=== PATIENT | female | born 1935 | race Hispanic/Latino ===

== ENCOUNTER 2017-07-15 10:54 | Inpatient (IN) | payer MEDICARE, BC ==
[2017-07-15 11:34] VITALS: BMI 32.1
--- NOTE | 2017-07-15 11:47 | ED PDOC ---
Arrival/HPI - General Chief Complaint: Abnormal Labs Time Seen by Provider: 07/15/17 11:28 Historian: Patient - History of Present Illness Narrative History of Present Illness (Text): 07/15/17 11:44 Melissa Rodriguez is an 82 year old female, who was sent to the Emergency department by Dr. Rosales for reportedly abnormal blood tests. Patient informs she was told she has, "low kidney function" and "low Blood Count" by Dr. Rosales and be evaluated by the Emergency department. Patient states she "feels fine" but informs to light shortness of breath upon exertion for couple of weeks. Patient denies any dizziness, chest pain, palpitation, blood in stool or any other complaints. Time/Duration: 24 hours Symptom Onset: Gradual Symptom Course: Unchanged Activities at Onset: Light Context: Other (Referred by Dr. Rosales for evaluation ) Past Medical History - Provider Review Nursing Documentation Reviewed: Yes - Infectious Disease Hx of Infectious Diseases: None - Cardiac Hx GA: Yes (x 3 stents) Hx Hypertension: Yes - HEENT Hx Glaucoma: Yes - Renal Other/Comment: Kidney problems - sees dr strong - Endocrine/Metabolic Hx Diabetes Mellitus Type 2: Yes - Hematological/Oncological Hx Anemia: Yes - Psychiatric Hx Substance Use: No - Surgical History Hx Cardiac Catheterization: Yes (x 3 stents) Other/Comment: R foot surgery. micky hip replacement - Anesthesia Hx Anesthesia: Yes Hx Anesthesia Reactions: No Hx Malignant Hyperthermia: No Family/Social History - Physician Review Nursing Documentation Reviewed: Yes Family/Social History: Unknown Family HX Smoking Status: Former Smoker Hx Alcohol Use: No Hx Substance Use: No Allergies/Home Meds Allergies/Adverse Reactions: Allergies No Known Allergies Allergy (Verified 07/15/17 11:34) Home Medications: Home Meds Medication Instructions Recorded Confirmed Aclidinium Helen [Tudorza 1 puff IH DAILY 07/15/17 07/15/17 Pressair] Atorvastatin [Lipitor] 1 tab PO HS 07/15/17 07/15/17 Clopidogrel [Plavix] 1 tab PO DAILY 07/15/17 07/15/17 Ezetimibe [Zetia] 1 tab PO DAILY 07/15/17 07/15/17 Fluticasone/Salmeterol [Advair 1 puff IH DAILY 07/15/17 07/15/17 250-50 Diskus] Glimepiride [Amaryl] 1 tab PO DAILY 07/15/17 07/15/17 Lansoprazole [Prevacid] 1 cap PO DAILY 07/15/17 07/15/17 Latanoprost 0.005% Opht [Xalatan 1 drop BOTHEYES DAILY 07/15/17 07/15/17 Opht] [id number] Ethyl Esters 1 GM 1 cap PO DAILY 07/15/17 07/15/17 [Lovaza] Sertraline [Zoloft] 1 tab PO DAILY 07/15/17 07/15/17 Sevelamer [Renagel] 1 tab PO BID 07/15/17 07/15/17 Sodium Bicarbonate Tab [Sodium 1 tab PO DAILY 07/15/17 07/15/17 Bicarbonate Tab] amLODIPine [Norvasc] 1 tab PO DAILY 07/15/17 07/15/17 Review of Systems - Review of Systems Constitutional: Fatigue. absent: Fevers Eyes: absent: Vision Changes Respiratory: absent: SOB, Cough, Wheezing Cardiovascular: [place]. absent: Chest Pain, Palpitations, Edema Gastrointestinal: absent: Abdominal Pain, Nausea, Vomiting, Appetite Changes, Hematochezia, Hematemesis Genitourinary Female: absent: Dysuria, Hematuria Musculoskeletal: absent: Back Pain Skin: absent: Rash Neurological: absent: Headache, Dizziness, Focal Weakness Endocrine: absent: Polydipsia Hemo/Lymphatic: absent: Easy Bleeding Physical Exam Vital Signs Reviewed: Yes Vital Signs Temp Pulse Resp BP Pulse Ox 07/15/17 16:23 172/94 H 07/15/17 16:07 75 194/80 H 07/15/17 16:00 97.6 F 70 20 133/74 99 07/15/17 15:28 81 194/90 H 07/15/17 15:23 18 194/94 H 97 07/15/17 13:57 78 18 180/83 H 98 07/15/17 12:08 81 18 182/79 H 98 07/15/17 11:33 97.8 F 85 18 189/81 H 98 Temperature: Afebrile Appearance: Positive for: Well-Appearing, Non-Toxic, Comfortable Mental Status: Positive for: Alert and Oriented X 3 - Systems Exam Head: Present: Atraumatic, Normocephalic Pupils: Present: PERRL Extroacular Muscles: Present: EOMI Mouth: Present: Dry Pharnyx: No: ERYTHEMA Nose (Internal): Present: Normal Inspection, No Active Bleeding Neck: Present: Normal Range of Motion. No: Meningeal Signs Respiratory/Chest: Present: Clear to Auscultation. No: Respiratory Distress Cardiovascular: Present: Regular Rate and Rhythm, Murmurs Abdomen: No: Tenderness Rectal: No: Gross Blood Upper Extremity: No: Edema Lower Extremity: Present: Neurovascularly Intact. No: Edema Neurological: Present: Motor Func Grossly Intact, Normal Sensory Function Skin: Present: Pale Psychiatric: Present: Alert, Normal Insight, Normal Concentration Medical Decision Making ED Course and Treatment: 07/15/17 11:47 Patient is an 82 yo female sent by Dr. Rosales for abnormal labs. She states initially that she "feels fine" but states that she does have shortness of breath with exertion for several weeks. Denies chest pain or abdominal pain. Denies difficulty urinating. Denies bloody urine or stool. Labs reveal that she is anemic with elevated Cr. She denies any known prior history of anemia or renal disease. She states that she has been eating normally. No vomiting or diarrhea. No dysuria or frequency or hematuria. Chest X-ray reviewed by radiologist, shows no active disease. Currently she is CV stable, plan to admit for anemia, renal insufficiency. Case d/w Dr. James, covering for her physician. Treatment plan clearly reviewed with patient. Abnormal labs and treatment plan reviewed with patient she expresses agreement. I discussed case with Dr. Olmstead for renal consultation. Preliminary urine culture report reviewed on 07/16/17. Will contact admitting PMD and recommend antibiotic administration. - Lab Interpretations Lab Results: 07/15/17 12:00 07/15/17 12:00 Lab Results 07/15/17 12:55: Urine Color Yellow, Urine Appearance Sl cloudy, Urine pH 6.0, Ur Specific [place] 1.020, Urine Protein 100 H, Urine Glucose (UA) Negative, Urine Ketones Negative, Urine Blood Trace-intact H, Urine Nitrate Negative, Urine Bilirubin Negative, Urine Urobilinogen 0.2, Ur Leukocyte Esterase Small H , Urine RBC 2 - 5, Urine WBC 15 - 20, Ur Epithelial Cells 6 - 8, Urine Bacteria Mod 07/15/17 12:55: Blood Type AB POSITIVE, Antibody Screen Negative, Crossmatch See Detail, BBK History Checked No verified bt 07/15/17 12:03: POC Glucose (mg/dL) 109 07/15/17 12:00: Iron 33 L, TIBC 405, % Saturation 8 L 07/15/17 12:00: Phosphorus 5.2 H, Ferritin Pending 07/15/17 12:00: Sodium 137, Potassium 3.7, Chloride 104, Carbon Dioxide 22, Anion Gap 15, BUN 67 H, Creatinine 3.0 H, Est GFR ( Amer) 18, Est GFR ( Non-Af Amer) 15, Random Glucose 113 H, Calcium 10.4, Total Bilirubin 0.3, AST 31 , ALT 24, Alkaline Phosphatase 51, Lactate Dehydrogenase 498, Total Creatine Kinase 137, Troponin I 0.05, Total Protein 7.2, Albumin 4.1, Globulin 3.1, Albumin/Globulin Ratio 1.3 07/15/17 12:00: PT 10.6, INR 0.96, APTT 26.5 07/15/17 12:00: WBC 8.3, RBC 2.92 L, Hgb 7.9 L, Hct 25.3 L, MCV 86.6, MCH 27.1, MCHC 31.2, RDW 14.7 H, Plt Count 247, MPV 12.0 H, Gran % 69.9 H, Lymph % (Auto) 21.3 L, [place] % (Auto) 5.3, Eos % (Auto) 3.1, Baso % (Auto) 0.4, Gran # 5.81, Lymph # 1.8, [place] # 0.4, Eos # 0.3, Baso # 0.03 - RAD Interpretation Radiology Orders: 07/15/17 11:57 CHEST PORTABLE [RAD] [employer] Security Analyst: Radiologist - EKG Interpretation EKG Interpretation (Text): EKG at 12:01 normal sinus rhythm with sinus arrhythmia Interpreted by ED Physician: Yes Type: 12 lead EKG - Medication Orders Current Medication Orders: Albuterol/Ipratropium (Duoneb 3 Mg/0.5 Mg (3 Ml) Ud) 3 ml IH [id number] [facility] Last Admin: 07/16/17 07:48 Dose: 3 ml Amlodipine Besylate (Norvasc) 5 mg PO DAILY [facility] Last Admin: 07/16/17 09:54 Dose: 5 mg MAR Pulse and Blood Pressure Document 07/16/17 09:54 SOUSV (Rec: 07/16/17 09:54 [facility] [id number]) Pulse Pulse Rate (60-90) 62 Blood Pressure Blood Pressure (100/60-150/90) 130/60 Atorvastatin Calcium (Lipitor) 20 mg PO HS [facility] Last Admin: 07/15/17 21:49 Dose: 20 mg Clopidogrel Bisulfate (Plavix) 75 mg PO DAILY [facility] Last Admin: 07/16/17 09:55 Dose: 75 mg Glimepiride (Amaryl) 2 mg PO DAILY [facility] Last Admin: 07/16/17 09:55 Dose: 2 mg Hydralazine HCl (Apresoline) 20 mg PO TID [facility] Last Admin: 07/16/17 09:55 Dose: 20 mg MAR Pulse and Blood Pressure Document 07/16/17 09:55 SOUSV (Rec: 07/16/17 09:55 SOUSV [id number]) Pulse Pulse Rate (60-90) 62 Blood Pressure Blood Pressure (100/60-150/90) 130/60 Insulin Human Regular (Humulin R Med) 0 units SC [facility] PRN Reason: Protocol Last Admin: 07/16/17 08:21 Dose: Not Given Non-Admin Reason: Blood Sugar Parameter [facility] Blood Glucose Document 07/16/17 08:21 SOUSV (Rec: 07/16/17 08:21 [id number]) Blood Glucose Finger Stick Blood Glucose (70-120) 57 Latanoprost (Xalatan Opht) 0 ml OU DAILY [facility] Last Admin: 07/16/17 09:53 Dose: 2.5 ml Sertraline HCl (Zoloft) 100 mg PO DAILY [facility] Last Admin: 07/16/17 09:55 Dose: 100 mg Sevelamer HCl (Renagel) 800 mg PO BID [facility] Last Admin: 07/16/17 09:54 Dose: 800 mg Sodium Bicarbonate (Sodium Bicarbonate Tab) 650 mg PO BID [facility] Last Admin: 07/16/17 09:55 Dose: 650 mg Discontinued Medications Acetaminophen (Tylenol 325mg Tab) 650 mg PO ONCE ONE Stop: 07/16/17 08:47 Last Admin: 07/16/17 09:54 Dose: 650 mg MAR Pain/Vitals Document 07/16/17 09:54 SOUSV (Rec: 07/16/17 09:54 SOUS [id number]) Pain Reassessment Is This A Pain ReAssessment? No Presence of Pain Presence of Pain No Vitals Temperature (97.6 F-99.6 F) 97.3 F Temperature Source Oral Clonidine HCl (Catapres) 0.1 mg PO ONCE STA Stop: 07/15/17 15:22 Last Admin: 07/15/17 15:28 Dose: 0.1 mg MAR Pulse and Blood Pressure Document 07/15/17 15:28 SS (Rec: 07/15/17 15:29 SS [id number]) Pulse Pulse Rate (60-90) 81 Blood Pressure Blood Pressure (100/60-150/90) 194/90 Clonidine HCl (Catapres) 0.2 mg PO ONCE STA Stop: 07/15/17 16:04 Last Admin: 07/15/17 16:07 Dose: 0.2 mg MAR Pulse and Blood Pressure Document 07/15/17 16:07 GMD (Rec: 07/15/17 16:07 GMD [id number]) Pulse Pulse Rate (60-90) 75 Blood Pressure Blood Pressure (100/60-150/90) 194/80 - Scribe Statement The provider has reviewed the documentation as recorded by the Scribe Mal Cha. All medical record entries made by the Scribe were at my direction and personally dictated by me. I have reviewed the chart and agree that the record accurately reflects my personal performance of the history, physical exam, medical decision making, and the department course for this patient. I have also personally directed, reviewed, and agree with the discharge instructions and disposition. Disposition/Present on Arrival - Present on Arrival Any Indicators Present on Arrival: No History of DVT/PE: No History of Uncontrolled Diabetes: No Urinary Catheter: No History of Decub. Ulcer: No History Surgical Site Infection Following: None - Disposition Have Diagnosis and Disposition been Completed?: Yes Diagnosis: Anemia, Renal insufficiency Disposition: HOSPITALIZED Disposition Time: 12:39 Patient Plan: Admission Patient Problems: Current Active Problems Problem Status Onset Anemia Acute Renal insufficiency Acute Condition: FAIR
[2017-07-15 12:22] LABS: BASO # 0.03 K/mm3 (0.0-2.0); BASO % 0.4 % (0.0-3.0); EOS # 0.3 (0.0-0.7); EOS % 3.1 % (1.5-5.0); GRAN # 5.81 (1.4-6.5); GRAN % 69.9 % (50.0-68.0); HEMATOCRIT 25.3 % (36.0-48.0); LYMPH # 1.8 (1.2-3.4); LYMPH % 21.3 % (22.0-35.0); MEAN CELL VOLUME 86.6 fl (80.0-105.0); MEAN CORPUSCULAR HEMOGLOBIN 27.1 pg (25.0-35.0); MEAN CORPUSCULAR HGB CONC 31.2 g/dl (31.0-37.0); MONO # 0.4 (0.1-0.6); MONO % 5.3 % (1.0-6.0); RED CELL DISTRIBUTION WIDTH 14.7 % (11.5-14.5); WHITE BLOOD COUNT 8.3 10^3/ul (4.5-11.0)
[2017-07-15 12:32] LABS: ALB/GLOB RATIO 1.3 (1.1-1.8); BILIRUBIN,TOTAL 0.3 mg/dL (0.2-1.3); CALCIUM 10.4 mg/dL (8.4-10.5); POTASSIUM 3.7 mmol/L (3.6-5.0); TOTAL PROTEIN 7.2 g/dL (5.8-8.3)
--- NOTE | 2017-07-15 12:36 | RAD ---
HISTORY: sob COMPARISON: 10/03/2015 FINDINGS: LUNGS: No active pulmonary disease. PLEURA: No significant pleural effusion identified, no pneumothorax apparent. CARDIOVASCULAR: Normal. OSSEOUS STRUCTURES: No significant abnormalities. VISUALIZED UPPER ABDOMEN: Normal. OTHER FINDINGS: None. IMPRESSION: No active disease.
[2017-07-15 12:38] LABS: INR 0.96 (0.93-1.08); PARTIAL THROMBOPLASTIN TIME 26.5 Seconds (25.1-36.5)
[2017-07-15 12:43] LABS: TROPONIN I 0.05 ng/mL
[2017-07-15 13:34] LABS: URINE BILIRUBIN NEGATIVE (NEGATIVE); URINE BLOOD TRACE-INTACT (NEGATIVE); URINE GLUCOSE (UA) NEGATIVE (NEGATIVE); URINE KETONE NEGATIVE (NEGATIVE); URINE LEUKOCYTE ESTERASE SMALL Leu/uL (NEGATIVE); URINE PROTEIN 100 mg/dL (<30 mg/dL); URINE UROBILINOGEN 0.2 E.U./dL (<1 E.U./dL)
[2017-07-15 13:38] LABS: URINE APPEARANCE SL CLOUDY (CLEAR); URINE COLOR YELLOW (YELLOW)
[2017-07-15 13:46] LABS: URINE BACTERIA MOD (NEG); URINE WBC 15 - 20 /hpf (0-6)
[2017-07-15 16:38] LABS: IRON 33 ug/dL (45-180)
[2017-07-15 16:39] LABS: PHOSPHOROUS 5.2 mg/dL (2.5-4.5)
[2017-07-15] MEDS ORDERED: GLIMEPIRIDE PO SCH (17:45)
[2017-07-15] MEDS: Albuterol-Ipratrop 3 mg / 0.5 (3 ml) UD IH SCH (19:57)
[2017-07-15] MEDS: Latanoprost 2.5 ml Opht Soln OU SCH (21:50)
[2017-07-15] MEDS: Insulin Reg-MEDIUM-Coverage SC SCH (23:06)
[2017-07-16] MEDS: Albuterol-Ipratrop 3 mg / 0.5 (3 ml) UD IH SCH ×4 (01:44→20:00)
--- NOTE | 2017-07-16 02:32 | CON ---
DATE: 07/15/2017 REASON FOR CONSULTATION: Acute kidney injury, superimposed on chronic kidney disease stage 3? HISTORY OF PRESENT ILLNESS: An 82-year-old lady, previously unknown to me, was sent to the emergency room by Dr. Rosales because of elevated creatinine seen on latest blood work. On questioning, the patient gives a history of NIDDM for a long time, hypertension, chronic kidney disease stage 3, she is under the care of Dr. Millard as outpatient. She is not sure what her kidney function is at baseline. She denies any headaches, dizziness, lightheadedness. She denies any chest pain, palpitations. She denies any abdominal pain, nausea, vomiting, diarrhea, constipation. She is not sure why she is in the hospital. PAST MEDICAL AND SURGICAL HISTORY: NIDDM, hypertension, CAD, PTCA and stents, chronic kidney disease stage 3?, secondary hyperparathyroidism, hyperphosphatemia, metabolic acidosis. FAMILY HISTORY: Hypertension. SOCIAL HISTORY: No smoking, no alcohol use, no IV drug abuse. ALLERGIES: NO KNOWN DRUG ALLERGIES. MEDICATIONS AT HOME: Lipitor 20 mg daily, Zetia 10 g daily, lansoprazole 30 mg daily, sertraline 100 mg daily, Lovaza 1 g, Plavix 75 mg daily, amlodipine 5 mg daily, glipizide 1 mg, Renvela 800 t.i.d., sodium bicarbonate 650 mg daily. REVIEW OF SYSTEMS: All systems are reviewed, pertinent positives as mentioned in the history of presenting illness, rest unremarkable. PHYSICAL EXAMINATION: General: Elderly lady, lying in bed. VITAL SIGNS: Blood pressure 194/90, heart rate 81, respiratory rate 18, temperature 97.8. HEENT: Normocephalic, atraumatic, positive pallor. NECK: Supple, no JVD. LUNGS: Bilateral equal air entry, no rales. CARDIAC: S1 and S2. Regular rate and rhythm. No murmur, no rub. ABDOMEN: Obese, distended, soft, nontender, bowel sounds present. EXTREMITIES: No lower extremity edema. INTAKE AND OUTPUT: Not charted. LABORATORY DATA: WBC 8, hemoglobin 7.9, hematocrit 25, platelets 247. Sodium 137, potassium 3.7, chloride 104, CO2 of 22, BUN 67, creatinine 3.0, glucose of 113, calcium 10.4, AST 31, ALT 24, albumin 4.1. Urine, yellow, cloudy, pH 6.0, specific 1.020, protein 100, blood trace intact. Leukocyte esterase small. ASSESSMENT: 1. Acute kidney injury, superimposed on chronic kidney disease stage 3?, baseline labs not available for review. 2. Severe anemia. 3. Advanced chronic kidney disease stage 4? 4. Severe hypertension, hypertensive urgency. 5. [id number]-dboqmsmmu diabetes mellitus. 6. Coronary artery disease, stable. 7. Mild hypokalemia. PLAN: 1. Check iron stores. 2. Check ferritin 3. Check stool occults x3. 4. Check phosphorus and intact PTH. 5. Start amlodipine 5 mg daily 6. Add hydralazine 20 mg t.i.d. 7. No uremic signs and symptoms at this time, no plans for renal replacement therapy at present. 8. Consider blood transfusion if hemoglobin drops 9. Discussed with patient, we will need closer outpatient followup. 10. Renal ultrasound. Thank you for the courtesy of this consultation. We will follow this patient closely with you. Chantell Olmstead MD
[2017-07-16 07:22] LABS: BASO # 0.02 K/mm3 (0.0-2.0); BASO % 0.3 % (0.0-3.0); EOS # 0.3 (0.0-0.7); EOS % 4.3 % (1.5-5.0); GRAN # 3.62 (1.4-6.5); LYMPH # 1.5 (1.2-3.4); LYMPH % 25.7 % (22.0-35.0); MEAN CELL VOLUME 86.1 fl (80.0-105.0); MEAN CORPUSCULAR HEMOGLOBIN 27.7 pg (25.0-35.0); MEAN CORPUSCULAR HGB CONC 32.2 g/dl (31.0-37.0); MEAN PLATELET VOLUME 11.6 fl (7.0-11.0); MONO # 0.5 (0.1-0.6); MONO % 7.7 % (1.0-6.0); RED CELL DISTRIBUTION WIDTH 14.7 % (11.5-14.5); WHITE BLOOD COUNT 5.8 10^3/ul (4.5-11.0)
[2017-07-16 07:45] LABS: HEMATOCRIT 20.5 % (36.0-48.0)
[2017-07-16 08:01] LABS: ALB/GLOB RATIO 1.3 (1.1-1.8); BILIRUBIN,TOTAL 0.2 mg/dL (0.2-1.3); CALCIUM 9.7 mg/dL (8.4-10.5); POTASSIUM 3.8 mmol/L (3.6-5.0); TOTAL PROTEIN 5.8 g/dL (5.8-8.3)
[2017-07-16] MEDS: Insulin Reg-MEDIUM-Coverage SC SCH ×4 (08:21→21:56)
--- NOTE | 2017-07-16 09:15 | HP ---
HISTORY OF PRESENT ILLNESS: The patient is an 82-year-old female, was seen by Dr. Rosales because she had some abnormal labs and anemia. She was told that her kidney functioning is getting low and she is anemic, so she needs to go to emergency room for further evaluation, although the patient does not have significant complaint except feeling weak, tired and shortness of breath with little activity that is going on for a few days. No history of chest pain. No palpitation. No nausea. No vomiting. No diarrhea. No abdominal pain. No history of rectal bleeding. No hemoptysis. No hematemesis. PAST MEDICAL HISTORY: Significant for hypertension, [id number] diabetes, history of COPD. ALLERGIES: SHE IS NOT ALLERGIC TO ANY MEDICATIONS. MEDICATIONS AT HOME: She is on amlodipine 10 mg daily, sodium bicarb one tablet 3 times a day, Renagel 800 t.i.d., Amaryl 1 mg twice a day, she is on Tudorza, she is on Lovaza, she takes Advair, Plavix, Zoloft, Prevacid, atorvastatin and Zetia. SOCIAL HISTORY: She used to be a heavy smoker in the past. Denies alcohol use. PHYSICAL EXAMINATION: GENERAL: On examination she is awake, alert and oriented, able to communicate, looks pale. VITAL SIGNS: She is afebrile, pulse 70, respiration 18, blood pressure 172/94. LUNGS: Bilateral good airflow. No rhonchi or crackle. HEART: S1 and S2 audible. ABDOMEN: Soft, nontender. No rebound. No guarding. NEUROLOGIC: The patient is awake, alert, oriented, able to communicate. LABORATORY DATA: WBC is 8.3, hemoglobin 7.9, hematocrit 25.3, platelets 247. PT is 10.6, INR 0.94. Chemistry: Sodium 137, potassium 3.7, chloride 104, CO2 of 22, BUN 67, creatinine 3.0. Blood sugar of 109, phosphorus 5.2, iron 33. Urine shows small leukocytes. X-ray of chest is unremarkable. ASSESSMENT AND PLAN: 1. Symptomatic anemia. 2. Worsening renal insufficiency. 3. Hypertension. 4. Hyperlipidemia. PLAN: We will resume the patient's medication. I will request for Dr. Olmstead to evaluate the patient. I will also request renal sonogram. We will monitor blood sugar. We will reevaluate. Marni James MD
--- NOTE | 2017-07-16 09:17 | CARD ---
APPROVED REPORT EKG Measurement Heart [id number] <Conclusion> Normal sinus rhythm with sinus arrhythmia Voltage criteria for left ventricular hypertrophy LAD PRWP V 4 -6, could be lead positioning
[2017-07-16] MEDS: Latanoprost 2.5 ml Opht Soln OU SCH (09:53)
--- NOTE | 2017-07-16 11:59 | PN ---
DATE: SUBJECTIVE: The patient is currently seen, lying supine in bed, on 3R. She is receiving 1 unit of packed red blood cells, and she is scheduled to receive a second unit. The patient has no complaints. She was sent over to the emergency room for admission because of an elevated BUN and creatinine apparently above her baseline levels. MEDICATIONS: Medication list reviewed. The patient is currently on Amaryl, Apresoline, DuoNeb, sliding scale insulin, Lipitor, Norvasc, Plavix, Renagel, sodium bicarbonate tablets, Xalatan ophthalmic ointment, and Zoloft. OBJECTIVE: INTAKE/OUTPUT: Intake 540, output not charted. VITAL SIGNS: Blood pressure 123/65, temperature 97.4, pulse of 65 with a respiratory rate of 16. HEENT: Shows her be normocephalic, atraumatic. Conjunctivae are pale. Sclerae are nonicteric. NECK: Supple. No neck vein distention. CHEST: Clear to auscultation and percussion. No rales or rhonchi or wheezing. CARDIOVASCULAR: Shows S1, S2 which are regular. No murmurs, rubs, or gallops noted. ABDOMEN: Soft. Bowel sounds normal. No rebound or guarding. EXTREMITIES: No lower extremity cyanosis, clubbing, or edema. LABORATORY DATA AND IMAGING: CBC: White blood cell count today was 6.6 down from 7.9. Hematocrit was 20.5. White blood cell count was 5.8. Platelet count is 199,000. Coags are normal. Chemistries showed normal electrolytes. BUN 67 down to 65, creatinine 3.0 down to 2.9. Again, we do not know the patient's baseline levels. We are trying to get this from Dr. Rosales, her primary care physician. Calcium is 9.7. Phosphorus is 5.2. Iron saturations were 8%. Ferritin is pending. Liver enzymes are normal. Albumin is 3.3. Her urine showed 2+ protein. 15-20 white blood cells per high-power field. Bacteria in the urine. Microbiology: Positive for Gram-negative rods in her urine. Renal ultrasound is pending. ASSESSMENT: 1. Acute renal failure, likely superimposed on chronic kidney disease, perhaps chronic kidney disease stage III. Baseline laboratories are not available, and her daughter will try and obtain these laboratories today from her primary care physician. Her outpatient photostatic copy maker is not available today, and she has not seen him for many months. 2. History of severe anemia. The patient is receiving 2 units of packed red blood cells. Rule out any gastrointestinal bleeding. The patient denies this. 3. History of noninsulin-dependent diabetes mellitus. Glucose control is acceptable. I will check a hemoglobin A1c level. 4. History of arteriosclerotic heart disease, status post percutaneous transluminal coronary angioplasty stents. This appears to be stable. 5. History of secondary hyperparathyroidism. The patient continues on binder therapy. 6. Hyperlipidemia. The patient continues on statin therapy and a low-fat, low-cholesterol diet. PLAN: 1. Obtain stool guaiacs. Rule out any GI bleeding. 2. Agree with transfusing the patient to a hemoglobin of 9-10 in light of her coronary artery disease and age. 3. A 24-hour urine for creatinine clearance and protein will be ordered. 4. Continue present blood pressure medication. Blood pressure is controlled today. No MILIND inhibitors, no angiotensin receptor blockers. 5. Continue low-protein diet and binder therapy. 6. Renal ultrasound is pending to be done later today. I have asked the patient's daughter to try and obtain outpatient laboratory work from perhaps her primary care physician. Dago Camara MD
--- NOTE | 2017-07-16 18:39 | PN ---
DATE: SUBJECTIVE: The patient is an 82-year-old, seen and examined, lying in bed, seems to be very comfortable, was only feeling weak and lethargic for few days, but doing better now. PHYSICAL EXAMINATION VITAL SIGNS: She is afebrile, pulse 64, respirations 16, blood pressure 127/61. LUNGS: Bilateral fair airflow. No rhonchi or crackle. HEART: S1 and S2 audible. ABDOMEN: Soft. Nontender. No rebound. No guarding. NEUROLOGICAL: The patient is awake, alert, oriented, communicative, able to ambulate. LABORATORY EXAMINATION: Her today's WBC is 5.8, hemoglobin 6.6, hematocrit 20.5, platelets of 199. Chemistries; sodium 134, potassium 3.8, chloride 103, CO2 of 24, BUN 65, creatinine 2.9, blood sugar is 185. Urine culture shows Gram-negative rods. ASSESSMENT: 1. Symptomatic anemia, etiology unclear, last colonoscopy was 8 years ago. Stool for Hemoccult has been ordered. 2. Renal insufficiency, acute on chronic. 3. Urinary tract infection. 4. Hypertension. 5. History of coronary artery disease, status post angioplasty. 6. Hyperlipidemia. 7. Hnj-gpafxhn-uupynqcaw diabetes. 8. History of chronic obstructive pulmonary disease. PLAN: The patient is receiving 2 blood transfusions today. We will monitor her CBC and CMP in a.m. Discussed with the patient and her daughter by the bedside at length. She might need colonoscopy and endoscopy later on. We will stabilize the patient and she might go home for [place] and other stuff. Other workup can be done as outpatient. Marin James MD
[2017-07-17] MEDS: Albuterol-Ipratrop 3 mg / 0.5 (3 ml) UD IH SCH ×3 (01:35→13:54)
[2017-07-17 07:34] VITALS: O2SAT 96
[2017-07-17 07:57] LABS: BASO # 0.02 K/mm3 (0.0-2.0); BASO % 0.3 % (0.0-3.0); EOS # 0.2 (0.0-0.7); EOS % 2.8 % (1.5-5.0); GRAN # 4.09 (1.4-6.5); GRAN % 67.3 % (50.0-68.0); HEMATOCRIT 26.2 % (36.0-48.0); LYMPH # 1.3 (1.2-3.4); LYMPH % 21.4 % (22.0-35.0); MEAN CELL VOLUME 84.2 fl (80.0-105.0); MEAN CORPUSCULAR HEMOGLOBIN 27.7 pg (25.0-35.0); MEAN CORPUSCULAR HGB CONC 32.8 g/dl (31.0-37.0); MEAN PLATELET VOLUME 12.3 fl (7.0-11.0); MONO # 0.5 (0.1-0.6); MONO % 8.2 % (1.0-6.0); RED CELL DISTRIBUTION WIDTH 14.8 % (11.5-14.5); WHITE BLOOD COUNT 6.1 10^3/ul (4.5-11.0)
[2017-07-17] MEDS: Insulin Reg-MEDIUM-Coverage SC SCH ×3 (08:12→17:59)
[2017-07-17 08:21] LABS: ALB/GLOB RATIO 1.3 (1.1-1.8); BILIRUBIN,TOTAL 0.3 mg/dL (0.2-1.3); CALCIUM 9.5 mg/dL (8.4-10.5); POTASSIUM 3.9 mmol/L (3.6-5.0); TOTAL PROTEIN 6.3 g/dL (5.8-8.3)
[2017-07-17] MEDS: Latanoprost 2.5 ml Opht Soln OU SCH (09:26)
--- NOTE | 2017-07-17 13:49 | US ---
PROCEDURE: Ultrasound of the Kidneys HISTORY: [facility] COMPARISON: 03/30/2016. TECHNIQUE: Sonogram of the kidneys. FINDINGS: RIGHT KIDNEY: Measures: 4.4 x 9.0 cm. Normal in size, contour and echogenicity. No stone, solid mass lesion or hydronephrosis visualized. Incidental finding(s): Simple cyst midpole region 2 x 2.1 x 2.3 cm LEFT KIDNEY: Measures: 4.6 x 4.2 x 9.1 cm. Normal in size, contour and echogenicity. No stone, solid mass lesion or hydronephrosis visualized. Incidental finding(s): Simple cyst midpole region 2 x 1.8 cm OTHER FINDINGS: None. IMPRESSION: No significant or acute findings to account for/ related to the clinical presentation. No significant interval change compared to the prior examination(s).
[2017-07-17 14:01] LABS: IRON 69 ug/dL (45-180)
--- NOTE | 2017-07-17 15:53 | PN ---
DATE: SUBJECTIVE: The patient is currently seen lying comfortable in bed. She is status post receiving 2 units of packed red blood cells yesterday, hemoglobin has come up to 8.6. The patient is completely asymptomatic. Today's creatinine is 3.0, perhaps that is her baseline. Renal ultrasound was done, results of pending. The 24-hour urine is in progress. The patient states that she would like to follow up with Dr. Souleymane Millard, when she leaves the hospital. She will also follow up with her primary care physician Dr. Rosales. MEDICATIONS: List reviewed. The patient is currently on Amaryl, Apresoline, DuoNeb, insulin, Levaquin, Lipitor, Norvasc, Plavix, Renagel, sodium bicarbonate tablets, Xalatan, and Zoloft. OBJECTIVE: INTAKE/OUTPUT: Intake 1130, output not charted. VITAL SIGNS: Blood pressure ranging from 156-174 systolic, diastolics ranging from 75-81, heart rate 62, temperature 98, and respiratory rate 18. HEENT: Shows her to be normocephalic, atraumatic. Conjunctivae pale. Sclerae nonicteric. NECK: Supple. No neck vein distention. CHEST: Clear to auscultation and percussion. No rales, rhonchi, or wheezing. CARDIOVASCULAR: Shows a regular rate and rhythm with no murmurs, rubs, or gallops. ABDOMEN: Soft. Bowel sounds normal. No rebound. No guarding. No masses. EXTREMITIES: Show no lower extremity cyanosis, clubbing or edema. LABORATORY DATA AND IMAGING STUDIES: Renal ultrasound done yesterday, results of pending. The 24-hour urine in progress will be completed this evening after which point in time the patient may be discharged home. CBC, white blood cell count 6.1, hemoglobin 8.6 with platelet count of 197,000. Chemistries show normal electrolytes. CO2 was up to 21, BUN is 64, stable, creatinine is 3.0, appears to be stable. Glucose is 134. Calcium 9.5. Phosphorus level was mildly elevated at 5.2. Magnesium level pending. Iron saturations were 8%. Microbiology, urine is positive for E-coli. The patient remains on a renal dose-adjusted dose of Levaquin. Stool guaiac were ordered, but no results back as of this dictation. ASSESSMENT: 1. Acute renal failure superimposed on chronic kidney disease or perhaps progression of chronic kidney disease. We do not have her baseline laboratory values. These are in the possession of Dr. Rosales. The patient also sees Dr. Souleymane Millard her aircraft steel fabricator, but has not seen Dr. Millard since the summer of 2016. 2. History of severe anemia, status post 2 units of packed red blood cells, unclear what the etiology is, unclear whether or not the patient should have a gastrointestinal workup are not. Stool guaiacs have been ordered, but no results are available at the time of dictation. 3. History of noninsulin dependent diabetes mellitus. Glucose control is acceptable. Hemoglobin A1c level was ordered. Results are pending. 4. History of arteriosclerotic heart disease, status post percutaneous transluminal coronary angioplasty and stent. This appears to be stable. 5. History of secondary hyperparathyroidism. The patient will continue on binder therapy. 6. PTH and vitamin D level are pending. 7. History of hyperlipidemia. The patient continues on statin therapy, low-fat, low-cholesterol diet. PLAN: 1. Many loose ends here, but the patient would like to go home for the [place] holiday. The patient is agreeable to follow up with Dr. Rosales, when he is back from his vacation. The patient will also follow with Dr. Souleymane Millard. At present the patient will not receive any MILIND inhibitors or angiotensin receptor blockers in light of her elevated creatinine. She will continue on calcium channel negrito therapy hydralazine. 2. The 24-hour urine for creatinine clearance and protein is in progress. These results will be available for outpatient followup. 3. Renal ultrasound done, no results available as of yet. 4. Continue all dietary restrictions. 5. Explained to the patient the importance of following up with her outpatient aircraft steel fabricator for further management. 6. Discussed with Dr. James in detail. Dago Camara MD
[2017-07-17 16:49] VITALS: BP 162/75; PULSE 67; RESP 19; TEMP 67
--- NOTE | 2017-07-17 17:01 | PN ---
DATE: SUBJECTIVE: The patient is currently seen in the process of collecting a 24-hour urine. She had completed her renal ultrasound. Results are pending. The patient was transfused 2 units of blood with a hemoglobin up to 8.6. The patient will be discharged home post completion of her 24-hour urine. MEDICATIONS: Medication list reviewed. The patient is currently on Amaryl, Apresoline, DuoNeb, insulin, Levaquin, Lipitor, Norvasc, Plavix, Renagel, sodium bicarbonate, Xalatan, and Zoloft. OBJECTIVE: Vital signs: Intake 1130, output not charted. Blood pressure 156/81, temperature 98, respiratory rate 18 with a pulse of 62. HEENT: Normocephalic, atraumatic. Conjunctiva pale. Sclerae nonicteric. NECK: Supple. No neck vein distention. CHEST: Clear to auscultation and percussion. No rales, rhonchi, or wheezing. CARDIOVASCULAR: Regular rate and rhythm without murmurs, rubs, or gallops. ABDOMEN: Soft. Bowel sounds normal. No rebound, guarding, or masses. EXTREMITIES: Show no cyanosis, clubbing, or edema. LABORATORY DATA AND IMAGING: Renal ultrasound results are pending. 24-hour urine is in progress. CBC, white blood cell count 6.1, hemoglobin 8.6, platelet count of 197,000. Chemistry showed normal electrolytes. BUN 64, creatinine 3.0. Calcium was 9.5. Last phosphorus level 5.2. Iron saturations were low at 8%. Liver enzymes are normal. Albumin is 3.5. PTH and vitamin D 25 hydroxy levels are pending. Stool guaiacs ordered and are pending. ASSESSMENT: 1. Acute renal failure superimposed on chronic kidney disease versus progression of chronic kidney disease. Unfortunately we do not have outpatient baseline labs. so I cannot comment further on this. Her creatinine does appear to be stable during the hospitalization at 3.0. 2. History of severe anemia. Unclear as to exact etiology. She is certainly iron deficient. Stool guaiacs are pending. She will likely need a gastrointestinal workup in the outpatient setting. The patient denies any gastrointestinal bleeding. 3. History of noninsulin dependent diabetes mellitus. Glucose control is acceptable. Hemoglobin A1c ordered. Results are pending. 4. History of ASHD, status post percutaneous transluminal coronary angioplasty with stent, this appears to be stable. 5. History of secondary hyperparathyroidism. The patient continues on binder therapy and perhaps started vitamin D, pending levels. 6. History of hyperlipidemia. The patient continues on statin therapy. PLAN: 1. The patient will likely be discharged home post 24-hour urine today, so she could be home with her family for the holiday. 2. As an outpatient, needs to follow results of her renal ultrasound and 20-hour urine studies. 3. At present, no MILIND inhibitors or angiotensin receptor blockers. 4. Continue renal diet. 5. Did explain to the patient that there are many loose ends here and that she needs to follow up closely with her buyer planner and sports writer in the outpatient setting. 6. Case discussed with Dr. James in detail. 7. Case discussed with nursing staff on 3R in detail. Dago Camara MD
[2017-07-17 21:32] LABS: URINE COLLECTION TIME 24 HOURS
--- NOTE | 2017-07-18 12:09 | DS ---
HISTORY OF PRESENT ILLNESS: Patient is 82 years old, seen and examined, anxious to go home. Denies nausea, vomiting. No diarrhea. No fever. No chills. PHYSICAL EXAMINATION: VITAL SIGNS: Patient is afebrile. Pulse 62, respirations 18, blood pressure 156/81. LUNGS: Bilateral good airflow. No rhonchi or crackle. HEART: S1, S2 audible. ABDOMEN: Soft, nontender. No rebound. No guarding. . NEUROLOGIC: Patient is awake, alert, oriented, communicative. LABORATORY EXAM: WBC 6.1, hemoglobin 8.6, hematocrit 26.2, platelets of 197,000. Chemistry: Sodium 137, potassium 3.9, chloride 105, CO2 21, BUN 64, creatinine 3.0, blood sugar of 134. Urinalysis is unremarkable. Urine culture positive for E. coli that is sensitive to Cipro. ASSESSMENT AND PLAN: 1. [id number] renal failure. Workup in progress. 2. Anemia, etiology is still unclear, multifactorial. Patient had a colonoscopy done many, many years ago and was told not to have it done again and her renal ultrasound is negative. 3. History of hypertension. 4. Coronary artery disease, status post angioplasty. 5. Escherichia coli urinary tract infection. 6. Non-insulin dependent diabetes. So, plan is patient is going to be discharged home. We will give her Cipro upon discharge and she will follow up with Dr. Rosales, Dr. Millard, and Dr. Myers as outpatient for workup of renal insufficiency and anemia. Patient will follow up with Dr. Rosales. Marin James MD
== END 2017-07-17 20:07 | disposition home or self-care (01) | DRG 683 ==
LOC: ED 10:54 → ERH 13:36 → 3RNO 16:35
PROVIDERS: ADMIT Internal Medicine; ATTEND Internal Medicine
PROC: 3E0F7GC Introduction of Other Therapeutic Substance into Respiratory Tract, Via Natural or Artificial Opening (ICD-10-PCS; 2017-07-15)
PROC: 30233N1 Transfusion of Nonautologous Red Blood Cells into Peripheral Vein, Percutaneous Approach (ICD-10-PCS; principal; 2017-07-16)
DX: N17.9 Acute kidney failure, unspecified (principal); N18.3 Chronic kidney disease, stage 3 (moderate); I12.9 Hypertensive chronic kidney disease with stage 1 through stage 4 chronic kidney disease, or unspecified chronic kidney disease; N39.0 Urinary tract infection, site not specified; E11.22 Type 2 diabetes mellitus with diabetic chronic kidney disease; D64.9 Anemia, unspecified; I25.10 Atherosclerotic heart disease of native coronary artery without angina pectoris; N25.81 Secondary hyperparathyroidism of renal origin; E61.1 Iron deficiency; E87.6 Hypokalemia; I16.0 Hypertensive urgency; J44.9 Chronic obstructive pulmonary disease, unspecified; B96.20 Unspecified Escherichia coli [E. coli] as the cause of diseases classified elsewhere; E78.5 Hyperlipidemia, unspecified; H40.9 Unspecified glaucoma; I25.2 Old myocardial infarction; Z79.84 Long term (current) use of oral hypoglycemic drugs; Z95.5 Presence of coronary angioplasty implant and graft; Z79.02 Long term (current) use of antithrombotics/antiplatelets; Z96.643 Presence of artificial hip joint, bilateral; Z87.891 Personal history of nicotine dependence

== ENCOUNTER 2017-08-17 07:51 | Day surgery (SDC) | payer MEDICARE, BC ==
[2017-08-12 09:34] VITALS: BMI 32.4
[2017-08-17 08:25] VITALS: TEMP 97.7
[2017-08-17] MEDS ORDERED: Propofol 10 mg/ml Inj (20 ML) ONE (08:28)
[2017-08-17] MEDS ORDERED: Lactated Ringer's 1,000 ML IV SCH (09:30)
[2017-08-17 11:15] VITALS: RESP 20
[2017-08-17 11:51] VITALS: BP 135/77; PULSE 65; O2SAT 99
== END 2017-08-17 12:09 | disposition home or self-care (01) ==
LOC: ENDO 07:51
PROVIDERS: ATTEND Specialist
DX: D64.9 Anemia, unspecified (principal); K57.30 Diverticulosis of large intestine without perforation or abscess without bleeding; E11.9 Type 2 diabetes mellitus without complications; I12.9 Hypertensive chronic kidney disease with stage 1 through stage 4 chronic kidney disease, or unspecified chronic kidney disease; E11.22 Type 2 diabetes mellitus with diabetic chronic kidney disease; N18.9 Chronic kidney disease, unspecified; J44.9 Chronic obstructive pulmonary disease, unspecified; I25.10 Atherosclerotic heart disease of native coronary artery without angina pectoris; K21.9 Gastro-esophageal reflux disease without esophagitis; F32.89 Other specified depressive episodes
CPT/HCPCS: 45378; 82948; J2001; J2704; J7120

== ENCOUNTER 2018-06-28 08:13 | Observation (INO) | payer MEDICARE, BC ==
[2018-06-28 08:25] VITALS: BMI 26.5
--- NOTE | 2018-06-28 08:54 | ED PDOC ---
Arrival/HPI - General Time Seen by Provider: 06/28/18 08:24 Historian: Patient - History of Present Illness Narrative History of Present Illness (Text): 06/28/18 09:00 A 83 year old female, whose past medical history includes asthma, COPD, diabetes type 2, blood transfusions, cardiac stents x 3 (patient takes Plavix), and anemia, sent by her pharmaceutical compounding supervisor Dr. Myers to the emergency department for abnormal blood levels. Patient reports having similar issue approximately 1 year ago. States abnormal blood levels are secondary to iron deficiency. States yesterday when having iron infusions, when the blood was drawn, patient was told by Dr. Myers blood levels are not normal and was directed to be evaluated at the ER. Also, patient mentions she has been experiencing shortness of breath when ambulating (baseline), and heaviness to chest and going down to lower extremities upon waking upon in the morning. Also, it is noted patient has a left side forehead bruise, which was sustained 1 week ago upon opening car door and accidentally hitting her head. Denies any other injuries that day, and no LOC, no difficulty ambulating. Did not have bruise evaluated. Patient notes also experiencing some back pain and dizziness(baseline), however denies any hea dache, nausea, vomiting, diarrhea, abdominal pain, chest pain, hematuria, dysuria, urinary output changes, or any other complaints at this time. Has not smoked in 20 yrs, denies any history of EtOH/substance abuse. Does not have home O2. PMD: Dr. Rosales Photo Journalist: Dr. Myers Aegis Operations Specialist: Dr. Lebron Motion Study Analyst: Dr. Ny Drilling Field Specialist: Dr. Millard Past Medical History - Provider Review Nursing Documentation Reviewed: Yes - Infectious Disease Hx of Infectious Diseases: None - Cardiac Hx Pacemaker: No - Pulmonary Hx Respiratory Disorders: Yes Hx Asthma: Yes Hx Chronic Obstructive Pulmonary Disease (COPD): Yes Hx Pneumonia: No - Neurological Hx Paralysis: No - HEENT Hx Glaucoma: Yes - Renal Other/Comment: Kidney problems - sees dr millard - Endocrine/Metabolic Hx Diabetes Mellitus Type 2: Yes - Hematological/Oncological Hx Blood Transfusions: Yes Hx Blood Transfusion Reaction: No - Musculoskeletal/Rheumatological Hx Musculoskeletal Disorders: No - Gastrointestinal Hx Gastrointestinal Disorders: No Hx Colostomy: No Hx Diverticulitis: No Hx Gall Bladder Disease: No Hx Gastroesophageal Reflux: Yes - Psychiatric Hx Emotional Abuse: No Hx Physical Abuse: No Hx Substance Use: No - Surgical History Hx Cardiac Catheterization: Yes (x 3 stents) Other/Comment: R foot surgery. micky hip replacement - Anesthesia Hx Anesthesia Reactions: No Hx Malignant Hyperthermia: No - Suicidal Assessment Feels Threatened In Home Enviroment: No Family/Social History - Physician Review Nursing Documentation Reviewed: Yes Family/Social History: No Known Family HX Smoking Status: Former Smoker Hx Alcohol Use: No Hx Substance Use: No Allergies/Home Meds Allergies/Adverse Reactions: Allergies No Known Allergies Allergy (Verified 06/28/18 08:24) Home Medications: Home Meds Medication Instructions Recorded Confirmed Aclidinium [place] [Tudorza 1 puff IH DAILY 07/15/17 08/17/17 Pressair] Atorvastatin [Lipitor] 20 tab PO HS 07/15/17 08/17/17 Clopidogrel [Plavix] 75 mg PO DAILY 07/15/17 08/17/17 Ezetimibe [Zetia] 10 mg PO DAILY 07/15/17 08/17/17 Fluticasone/Salmeterol [Advair 1 puff IH DAILY 07/15/17 08/17/17 250-50 Diskus] Glimepiride [Amaryl] 1 mg PO DAILY 07/15/17 08/17/17 Lansoprazole [Prevacid] 30 mg PO DAILY 07/15/17 08/17/17 Latanoprost 0.005% Opht [Xalatan 1 drop BOTHEYES DAILY 07/15/17 08/17/17 Opht] [id number]-8-Udit Ethyl Esters 1 GM 1 cap PO DAILY 07/15/17 08/17/17 [Lovaza] Sertraline [Zoloft] 50 mg PO DAILY 07/15/17 08/17/17 Sevelamer [Renagel] 800 mg PO BID 07/15/17 08/17/17 Sodium Bicarbonate Tab 650 mg PO BID 07/15/17 08/17/17 amLODIPine [Norvasc] 5 mg PO DAILY 07/15/17 08/17/17 Review of Systems - Physician Review All systems were reviewed & negative as marked: Yes - Review of Systems Respiratory: SOB (baseline) Cardiovascular: absent: Chest Pain Gastrointestinal: absent: Abdominal Pain, Diarrhea, Nausea, Vomiting Genitourinary Female: absent: Dysuria, Hematuria, Urine Output Changes Neurological: Dizziness (baseline). absent: Headache Physical Exam Vital Signs Reviewed: Yes Temperature: Afebrile Blood Pressure: Normal Pulse: Regular Respiratory Rate: Normal Appearance: Positive for: Well-Appearing, Non-Toxic, Comfortable Pain Distress: None Mental Status: Positive for: Alert and Oriented X 3 - Systems Exam Head: Present: Contusion (left-side forehead) Pupils: Present: PERRL Extroacular Muscles: Present: EOMI Conjunctiva: Present: Normal Mouth: Present: Moist Mucous Membranes Pharnyx: Present: Normal. No: ERYTHEMA, EXUDATE Nose (Internal): Present: No Active Bleeding. No: Septal Hematoma Neck: Present: Normal Range of Motion, Trachea Midline. No: Meningeal Signs, MIDLINE TENDERNESS, Paraspinal Tenderness, JVD, Lymphadenopathy, Bruit Respiratory/Chest: Present: Clear to Auscultation, Good Air Exchange. No: Respiratory Distress, Accessory Muscle Use Cardiovascular: Present: Regular Rate and Rhythm, Normal S1, S2. No: Murmurs Abdomen: No: Tenderness, Distention, Peritoneal Signs Back: Present: Normal Inspection Upper Extremity: Present: Normal Inspection. No: Cyanosis, Edema Lower Extremity: Present: Normal Inspection. No: Edema Neurological: Present: GCS=15, CN II-XII Intact, Speech Normal, Motor Func Grossly Intact, Normal Cerebellar Funct Skin: Present: Pale Psychiatric: Present: Alert, Oriented x 3, Normal Insight, Normal Concentration Medical Decision Making ED Course and Treatment: 06/28/18 09:04 Impression: 83 year old female sent by Dr. Myers for evaluation of anemia. Hx of iron def anemia. Recent head impact while on plavix, accidental 1 week prior. Normal neuro exam, No abdominal pain or tenderness. She denies falling or trauma to any other region bedsides her head. Denies any neuro complaints or headache since. Gait stable, pelvis stable. Neck clear via NEXUS. Pt denies any dark or bloody stool. Pending imaging and labs. Plan: -- EKG -- Head CT -- Chest X-ray -- Labs -- Reassess and disposition Prior Visits: Notes and results from previous visits were reviewed. Patient was last seen in the emergency department on 07/15/[address] Rosales for abnormal blood tests. Patient was admitted for anemia and renal insufficiency. Progress Notes: EKG: Ordered, reviewed, and independently interpreted the EKG. Rate : 61 BPM Rhythm : NSR Interpretation : No STEMI, no ST-segment elevations or depressions, no T-wave inversions, normal intervals. Comparison : No previous EKG for comparison. 06/28/2018 09:[address] IMPRESSION: No evidence of intracranial hemorrhage. Patchy hypodensity in the left cerebellum raises suspicion for encephalomalacia. Please note that MRI with diffusion imaging is more sensitive in the detection of acute ischemic event. Nonspecific white matter changes. Generalized atrophy. Partial opacification of the sphenoid sinus. Remainder of the visualized paranasal sinuses appear clear. Correlate clinically for sinusitis. Dictator: Kneia Amor MD 06/28/18 10:20 Pt in NAD No hemorrhage on CT No cerebellar signs on pt. Normal neuro exam. Denies feeling dizzy / vertigo. Good finger to nose and good gait. Likely non-acute and non-related to pts current anemia. appreciate consult w/ Dr. Espino: to be admitted to his service under Tele. Pt in NAD, Agreeable to plan. - RAD Interpretation Radiology Orders: 06/28/18 08:43 HEAD W/O CONTRAST [CT] Stat CHEST TWO VIEWS (PA/LAT) [RAD] Stat - Scribe Statement The provider has reviewed the documentation as recorded by the Alanaiban Sarah Provider Scribe Attestation: All medical record entries made by the Scribe were at my direction and personally dictated by me. I have reviewed the chart and agree that the record accurately reflects my personal performance of the history, physical exam, medical decision making, and the department course for this patient. I have also personally directed, reviewed, and agree with the discharge instructions and disposition. Disposition/Present on Arrival - Present on Arrival Any Indicators Present on Arrival: No History of DVT/PE: No History of Uncontrolled Diabetes: No Urinary Catheter: No History Surgical Site Infection Following: None - Disposition Have Diagnosis and Disposition been Completed?: Yes Diagnosis: Anemia, Renal insufficiency Disposition Time: 10:24 Patient Plan: Admission Condition: GOOD Referrals: Azar Rosales MD [Primary Care Provider] - Follow up with primary
[2018-06-28 09:38] LABS: BASO # 0.02 K/mm3 (0.0-2.0); BASO % 0.3 % (0.0-3.0); EOS # 0.3 (0.0-0.7); EOS % 3.3 % (1.5-5.0); GRAN # 5.43 (1.4-6.5); GRAN % 72.4 % (50.0-68.0); LYMPH # 1.3 (1.2-3.4); LYMPH % 17.5 % (22.0-35.0); MEAN CELL VOLUME 87.9 fl (80.0-105.0); MEAN CORPUSCULAR HEMOGLOBIN 26.6 pg (25.0-35.0); MEAN CORPUSCULAR HGB CONC 30.3 g/dl (31.0-37.0); MEAN PLATELET VOLUME 10.9 fl (7.0-11.0); MONO # 0.5 (0.1-0.6); MONO % 6.5 % (1.0-6.0); RBC 1.99 10^6/uL (3.5-6.1); RED CELL DISTRIBUTION WIDTH 18.7 % (11.5-14.5); WHITE BLOOD COUNT 7.5 10^3/uL (4.5-11.0)
[2018-06-28 09:41] LABS: HEMOGLOBIN 5.3 g/dL (12.0-16.0)
[2018-06-28 09:44] LABS: INR 0.97; PARTIAL THROMBOPLASTIN TIME 26.8 Seconds (25.1-36.5); PROTHROMBIN TIME 11.2 SECONDS (9.4-12.5)
[2018-06-28 09:57] LABS: TROPONIN I 0.04 ng/mL
--- NOTE | 2018-06-28 09:58 | CT ---
Date of service: 06/28/2018 PROCEDURE: CT HEAD WITHOUT CONTRAST. HISTORY: fall on plavix 4d prior COMPARISON: None available. TECHNIQUE: Axial computed tomography images were obtained through the head/brain without intravenous contrast. Radiation dose: Total exam DLP = 1007.14 mGy-cm. This CT exam was performed using one or more of the following dose reduction techniques: Automated exposure control, adjustment of the mA and/or kV according to patient size, and/or use of iterative reconstruction technique. FINDINGS: Streak artifact limits evaluation of the skull base. HEMORRHAGE: No intracranial hemorrhage. BRAIN: Diffuse atrophy with prominence of the ventricles and sulci noted. No mass effect or edema. Intracranial atherosclerosis. Bilateral basal ganglia calcifications. More focal patchy hypodensity involving the left cerebellum; encephalomalacia suspected. Scattered periventricular and subcortical white matter hypodensities, which are nonspecific, but often seen with chronic microvascular ischemic disease. Please note that MRI with diffusion imaging is more sensitive in the detection of acute ischemic event. VENTRICLES: No hydrocephalus. CALVARIUM: Unremarkable. PARANASAL SINUSES: Partial opacification of the sphenoid sinus. The remainder the visualized paranasal sinuses appear clear. MASTOID AIR CELLS: Unremarkable as visualized. No inflammatory changes. OTHER FINDINGS: None. IMPRESSION: No evidence of intracranial hemorrhage. Patchy hypodensity in the left cerebellum raises suspicion for encephalomalacia. Please note that MRI with diffusion imaging is more sensitive in the detection of acute ischemic event. Nonspecific white matter changes. Generalized atrophy. Partial opacification of the sphenoid sinus. Remainder of the visualized paranasal sinuses appear clear. Correlate clinically for sinusitis.
[2018-06-28 10:05] LABS: ALB/GLOB RATIO 1.2 (1.1-1.8); ALBUMIN 3.3 g/dL (3.0-4.8)
--- NOTE | 2018-06-28 10:59 | RAD ---
Date of service: 06/28/2018 HISTORY: fatigue COMPARISON: 07/15/2017 TECHNIQUE: Chest PA and lateral FINDINGS: LUNGS: No active pulmonary disease. PLEURA: No significant pleural effusion identified. No pneumothorax apparent. CARDIOVASCULAR: Aortic calcification Normal cardiac size. No pulmonary vascular congestion. OSSEOUS STRUCTURES: No significant abnormalities. VISUALIZED UPPER ABDOMEN: Normal. OTHER FINDINGS: None. IMPRESSION: No active disease.
--- NOTE | 2018-06-28 11:11 | CP.PCM.HP ---
<Rosey Santiago - Last Filed: 06/28/18 15:36> History of Present Illness - History of Present Illness History of Present Illness: CC: I was sent in by my operating system programmer for low blood count HPI: 83yo female PMHx CAD s/p transluminal angioplasty with 3 stents (1997) on plavix, CKD IV, anemia requiring blood transfusion, HERMILO on IV iron and procrit, NIDDM, secondary hyperparathyroidism, HTN, HLD, asthma, COPD, sent to [facility] ER by her operating system programmer Dr. Myers for abnormal blood work. Patient was seen in Dr. Myers's office the day before for Venofer infusion and had bloodwork drawn that revealed Hgb 5.5. Patient reports this had happened 1 year ago [Jun 2017] when she was hospitalized at [facility] and required blood transfusions. She stated that on her prior admission she was asymptomatic; however over the past 1 week she has been experiencing dizziness, lightheadedness, dyspnea with minimal exertion, and a "heaviness" when she would ambulate. Patient reported feeling like her body was "1000pounds" and that she had no energy to carry out daily activities. She also complained of a heaviness from her chest to her feet when she woke up this AM. Of note, patient also had an accident 1 week ago when opening her car door- she hit the right side of her forehead and sustained a bruise. 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 Patient also reported a mechanical fall 4 months ago when she tripped over a wire but reported this is not common. Patient had a colonoscopy July 2017 that revealed diverticulosis in sigmoid colon and had fecal occult test some months ago which was negative ROS: admits- weakness, lightheadedness, dizziness, dyspnea on minimal exertion, postnasal drip, nonproductive cough, +b/l LE swelling L worse than R denies- headache, blurry vision, ringing of the ears, chest pain, palpitations, abdominal pain, nausea, vomiting, bowel/bladder complaints, blood in stool, melena, hematuria, numbness/tingling bilateral lower extremities PMHx: CAD s/p transluminal angioplasty with 3 stents (1997) on plavix, CKD IV, anemia requiring blood transfusion, HERMILO on IV iron and procrit, NIDDM, secondary hyperparathyroidism, HTN, HLD, asthma, COPD PSurgHx: 3 stents placed 20 years ago; R neuroma excision PHospitalization: Jun 2017 for anemia Meds: pls see chart ALL: NKDA SocHx: patient used to smoke 2-3ppd for 30 years and quit 20 years ago (1997), occasional EtOH, and denied drug use. Lives at home alone. Ambulates without assistance. FamHx: mother colon cancer; sister pancreatic cancer; aunt CVA PMD: Dr. Rosales Civil Engineering Designer: Dr. Myers Wire Straightener: Dr. Lebron [last seen 3-4 weeks ago] Mobile Paint Specialist: Dr. Ny Preparer Samples And Repairs: Dr. Millard [last seen few weeks ago] Pharmacy: [facility] Present on Admission - Present on Admission Any Indicators Present on Admission: No Review of Systems - Review of Systems All systems: reviewed and no additional remarkable complaints except Review of Systems: as per HPI Past Patient History - Infectious Disease Hx of Infectious Diseases: None - Past Social History Smoking Status: Former Smoker - CARDIAC Hx Pacemaker: No - PULMONARY Hx Respiratory Disorders: Yes Hx Asthma: Yes Hx Chronic Obstructive Pulmonary Disease (COPD): Yes Hx Pneumonia: No - NEUROLOGICAL Hx Paralysis: No - HEENT Hx Glaucoma: Yes - RENAL Other/Comment: Kidney problems - sees dr millard - ENDOCRINE/METABOLIC Hx Diabetes Mellitus Type 2: Yes - HEMATOLOGICAL/ONCOLOGICAL Hx Blood Transfusions: Yes Hx Blood Transfusion Reaction: No - MUSCULOSKELETAL/RHEUMATOLOGICAL Hx Musculoskeletal Disorders: No - GASTROINTESTINAL Hx Gastrointestinal Disorders: No Hx Colostomy: No Hx Diverticulitis: No Hx Gall Bladder Disease: No Hx Gastroesophageal Reflux: Yes - PSYCHIATRIC Hx Emotional Abuse: No Hx Physical Abuse: No Hx Substance Use: No - SURGICAL HISTORY Hx Cardiac Catheterization: Yes (x 3 stents) Other/Comment: R foot surgery. micky hip replacement - ANESTHESIA Hx Anesthesia Reactions: No Hx Malignant Hyperthermia: No Meds Allergies/Adverse Reactions: Allergies Allergy/AdvReac Type Severity Reaction Status Date / Time No Known Allergies Allergy Verified 06/28/18 08:24 Physical Exam - Constitutional Appears: Non-toxic, No Acute Distress - Head Exam Head Exam: NORMOCEPHALIC Additional comments: R forehead area of ecchymosis noted - Eye Exam Eye Exam: EOMI, Normal appearance, PERRL. absent: Conjunctival injection, Scleral icterus - ENT Exam ENT Exam: Mucous Membranes Dry - Neck Exam Neck exam: Positive for: Full Rom, Normal Inspection - Respiratory Exam Respiratory Exam: Clear to Auscultation Bilateral, NORMAL BREATHING PATTERN. absent: Accessory Muscle Use, Rales, Rhonchi, Wheezes, Respiratory Distress - Cardiovascular Exam Cardiovascular Exam: REGULAR RHYTHM, +S1, +S2. absent: Systolic Murmur - GI/Abdominal Exam GI & Abdominal Exam: Normal Bowel Sounds, Soft. absent: Firm, Guarding, Rigid, Tenderness - Rectal Exam Rectal Exam: Deferred - Extremities Exam Extremities exam: Positive for: pedal pulses present. Negative for: pedal edema, tenderness - Back Exam Back exam: NORMAL INSPECTION. absent: rash noted, tenderness - Neurological Exam Neurological exam: Alert, CN II-XII Intact, Oriented x3 - Psychiatric Exam Psychiatric exam: Normal Affect, Normal Mood - Skin Skin Exam: Dry, Intact, Pallor, Pallor Results - Vital Signs Recent Vital Signs: Last Vital Signs Temp 98.2 F 06/28/18 10:53 Pulse 71 06/28/18 10:53 Resp 18 06/28/18 10:53 BP 138/74 06/28/18 10:53 Pulse Ox 98 06/28/18 10:26 - Labs Result Diagrams: 06/28/18 09:06 06/28/18 09:06 Labs: Laboratory Results - last 24 hr 06/28/18 06/28/18 06/28/18 09:06 09:06 09:06 WBC 7.5 RBC 1.99 L Hgb 5.3 L* D Hct 17.5 L* MCV 87.9 D MCH 26.6 MCHC 30.3 L RDW 18.7 H Plt Count 275 MPV 10.9 Gran % 72.4 H Lymph % (Auto) 17.5 L Borden % (Auto) 6.5 H Eos % (Auto) 3.3 Baso % (Auto) 0.3 Gran # 5.43 Lymph # (Auto) 1.3 Borden # (Auto) 0.5 Eos # (Auto) 0.3 Baso # (Auto) 0.02 PT 11.2 INR 0.97 APTT 26.8 Sodium 140 Potassium 4.5 Chloride 110 H Carbon Dioxide 21 Anion Gap 14 BUN 57 H Creatinine 3.0 H Est GFR ( Amer) 18 Est GFR (Non-Af Amer) 15 Random Glucose 109 Calcium 9.0 Magnesium 2.6 H Total Bilirubin 0.3 AST 28 ALT 34 Alkaline Phosphatase 72 Troponin I 0.04 NT-Pro-B Natriuret Pep 7800 H Total Protein 6.0 Albumin 3.3 Globulin 2.7 Albumin/Globulin Ratio 1.2 Blood Type Antibody Screen Crossmatch BBK History Checked 06/28/18 09:06 WBC RBC Hgb Hct MCV MCH MCHC RDW Plt Count MPV Gran % Lymph % (Auto) Borden % (Auto) Eos % (Auto) Baso % (Auto) Gran # Lymph # (Auto) Borden # (Auto) Eos # (Auto) Baso # (Auto) PT INR APTT Sodium Potassium Chloride Carbon Dioxide Anion Gap BUN Creatinine Est GFR ( Amer) Est GFR (Non-Af Amer) Random Glucose Calcium Magnesium Total Bilirubin AST ALT Alkaline Phosphatase Troponin I NT-Pro-B Natriuret Pep Total Protein Albumin Globulin Albumin/Globulin Ratio Blood Type AB POSITIVE Antibody Screen Negative Crossmatch See Detail BBK History Checked Patient has bt Assessment & Plan - Assessment and Plan (Free Text) Assessment: 83yo female PMHx CAD s/p transluminal angioplasty with 3 stents (1997) on plavix, CKD IV, anemia requiring blood transfusion, HERMILO on IV iron and procrit, NIDDM, secondary hyperparathyroidism, HTN, HLD, asthma, COPD, sent to [facility] ER by her operating system programmer Dr. Myers for abnormal blood work 1) Symptomatic anemia 2) Dyspnea on minimal exertion 3) elevated proBNP 4) Hx of CKD Stage IV 5) Hx CAD s/p transluminal angioplasty with 3 stents (1997) on plavix 6) Hx of HERMILO 7) Hx of NIDDM 8) Hx of secondary hyperparathyroidism 9) Hx of HTN 10) Hx of HLD 11) Hx of COPD Plan: Patient to be admitted to TELE floor. 2U PRBC ordered to be transfused and repeat CBC to monitor response. Patient's plavix on hold at this time. Troponin on admission 0.04- will repeat troponin x 2. Iron studies were added to labs drawn in ER prior to patient receiving blood which was WNL. Elevated proBNP likely secondary to severe anemia. Will f/u CT Abd/pelvis. Continue patient on home renagel and sodium bicarb. Home glimeperide on hold and patient started on low dose RISS with accuchecks. Home meds continued for HTN and HLD. Duoneb prn for SOB. Dr. Myers consulted and GI Dr. Cardona consulted. PT eval to r/o gait disturbance. Patient to follow heart healthy renal non-dialysis diet with mod consistent carb. Discussed with Dr. Jocelyn Santiago PGY3 <Shabbir Banks S - Last Filed: 06/28/18 18:27> Results - Vital Signs Recent Vital Signs: Last Vital Signs Temp 98.6 F 06/28/18 18:00 Pulse 88 06/28/18 18:00 Resp 20 06/28/18 18:00 BP 163/98 H 06/28/18 18:00 Pulse Ox 98 06/28/18 17:02 - Labs Result Diagrams: 06/28/18 09:06 06/28/18 09:06 Labs: Laboratory Results - last 24 hr 06/28/18 06/28/18 06/28/18 09:06 09:06 09:06 WBC 7.5 RBC 1.99 L Hgb 5.3 L* D Hct 17.5 L* MCV 87.9 D MCH 26.6 MCHC 30.3 L RDW 18.7 H Plt Count 275 MPV 10.9 Gran % 72.4 H Lymph % (Auto) 17.5 L Borden % (Auto) 6.5 H Eos % (Auto) 3.3 Baso % (Auto) 0.3 Gran # 5.43 Lymph # (Auto) 1.3 Borden # (Auto) 0.5 Eos # (Auto) 0.3 Baso # (Auto) 0.02 PT 11.2 INR 0.97 APTT 26.8 Sodium 140 Potassium 4.5 Chloride 110 H Carbon Dioxide 21 Anion Gap 14 BUN 57 H Creatinine 3.0 H Est GFR ( Amer) 18 Est GFR (Non-Af Amer) 15 Random Glucose 109 Calcium 9.0 Magnesium 2.6 H Iron TIBC % Saturation Total Bilirubin 0.3 AST 28 ALT 34 Alkaline Phosphatase 72 Troponin I 0.04 NT-Pro-B Natriuret Pep 7800 H Total Protein 6.0 Albumin 3.3 Globulin 2.7 Albumin/Globulin Ratio 1.2 Blood Type Antibody Screen Crossmatch BBK History Checked 06/28/18 06/28/18 09:06 11:00 WBC RBC Hgb Hct MCV MCH MCHC RDW Plt Count MPV Gran % Lymph % (Auto) Borden % (Auto) Eos % (Auto) Baso % (Auto) Gran # Lymph # (Auto) Borden # (Auto) Eos # (Auto) Baso # (Auto) PT INR APTT Sodium Potassium Chloride Carbon Dioxide Anion Gap BUN Creatinine Est GFR ( Amer) Est GFR (Non-Af Amer) Random Glucose Calcium Magnesium Iron 107 TIBC 352 % Saturation 30 Total Bilirubin AST ALT Alkaline Phosphatase Troponin I NT-Pro-B Natriuret Pep Total Protein Albumin Globulin Albumin/Globulin Ratio Blood Type AB POSITIVE Antibody Screen Negative Crossmatch See Detail BBK History Checked Patient has bt Assessment & Plan - Assessment and Plan (Free Text) Plan: Pt seen and examined. I reviewed the note of the medical technologist prn and I agree with the note including the assessment and plan. I reviewed the medications and last labs. Pt with acute anemia of unknown etiology. She is symptomatic of the anemia and will need transfusion. She became SOB after 2 Units and will be given Lasix 40mg IV x1. I will hold the 3rd unit for now. She has a AAA (6.6 x7.8 cm) with possible dissection on the CT and/pelvis. I have asked Dr Sam Gupta to evaluate. I will also get surgery to follow on consult. She will need iron studies. I will order a repeat CBC in the morning. She has CKD-4 but not likely causing the anemia. Iron Saturation is good. She will be placed on Renagel for her secondary hyperparathyroidism. She will have her Glimeperide on hold for her DM-2 and will get ISS with fs coverage. She will be admitted to tele. She hit her head and has ecchymosis on her forehead. She did not fall. Plavix will be placed on hold.
[2018-06-28] MEDS ORDERED: Albuterol-Ipratrop 3 mg / 0.5 (3 ml) UD IH PRN (13:13)
[2018-06-28 14:34] LABS: IRON 107 ug/dL (45-180)
[2018-06-28] MEDS ORDERED: Barium Sulfate Susp 2.1% w/v, 2.0% w/w 450 mL Bottle PO ONE (14:41)
[2018-06-28] MEDS ORDERED: Iohexol 240 (50 ml) ONE (14:42)
[2018-06-28 14:43] LABS: % IRON SATURATION 30 % (20-55); TOTAL IRON BINDING CAPACITY 352 ug/dL (265-497)
[2018-06-28] MEDS: Insulin Lispro (humaLOG) LOW Coverage SC SCH ×2 (16:52→22:24)
--- NOTE | 2018-06-28 17:47 | CT ---
Date of service: 06/28/2018 PROCEDURE: CT Abdomen and Pelvis with contrast HISTORY: r/o mass lesion abdomen COMPARISON: None. TECHNIQUE: Intravenous contrast dose:Oral contrast only. Radiation dose: Total exam DLP = 973.75 mGy-cm. This CT exam was performed using one or more of the following dose reduction techniques: Automated exposure control, adjustment of the mA and/or kV according to patient size, and/or use of iterative reconstruction technique. FINDINGS: LOWER THORAX: Small hiatal hernia. Small right pleural effusion. Lower lobe atelectasis. Right middle lobe infiltrate. LIVER: Unremarkable. No gross lesion or ductal dilatation. GALLBLADDER AND BILE DUCTS: Unremarkable. PANCREAS: Unremarkable. No gross lesion or ductal dilatation. SPLEEN: Unremarkable. ADRENALS: Unremarkable. No mass. KIDNEYS AND URETERS: Unremarkable. No hydronephrosis. No solid mass. VASCULATURE: Aneurysmal dilatation of the aorta from the level of the renal arteries to the bifurcation (a cephalocaudal distance of 13.5 cm). The aorta is densely calcified. 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 Findings of dissection identified. It is difficult to separate the true and false lumens. There is amorphous calcification within what is likely the false channel of the aneurysm. At this level the orthogonal measurements are 6.6 x 7.8 cm. No atherosclerotic calcification or mural plaque present. Densely calcified visceral branch arteries noted. BOWEL: Diverticulosis without an acute inflammatory component or other associated pathologic process. APPENDIX: No abnormalities to suggest acute appendicitis. No right lower quadrant inflammatory processes identified. PERITONEUM: Unremarkable. No free fluid. No free air. LYMPH NODES: Unremarkable. No enlarged lymph nodes. BLADDER: Unremarkable. REPRODUCTIVE: Unremarkable. BONES: No acute fracture. OTHER FINDINGS: None. IMPRESSION: Large aortic aneurysm with maximum orthogonal measurements 6.6 x 7.8 cm. The aneurysm extends from the renal arteries to the bifurcation over distance of 13.5 cm. There is a component of dissection which is difficult to evaluate in the absence of intravenous contrast. The aorta is densely calcified and there are linear as well as amorphous calcifications demarcating the true lumen (which appears posterior) from the false lumen. Communication of results: Findings discussed with the nurse involved in the care and management this patient (Viktoria) with a verbal read back. Study completed at 17:10, verbal results provided at 17:35 Additional benign and/or incidental findings described above.
--- NOTE | 2018-06-28 18:57 | CP.PCM.CON ---
History of Present Illness - History of Present Illness History of Present Illness: 83F with PMHx of HTN, COPD,DM, CAD s/p angioplasty x3 stents on Plavix, chronic kidney disease, and anemia. Patient presented to [facility] after being sent by Dr. Myers after Hgb was noted to be 5.5. Vascular surgery was consulted for AAA. Patient reports chest pressure .Patient mentioned feeling lightheaded, SOB with minimal exertion. She denies any abdominal pain. Patient reports having a colonoscopy in Jul 2017 which revealed diverticulosis. Patient states she was also scheduled for EGD but did not go. PMHx:as stated above secondary PSurgHx: Right neuroma excision, b/l hip replacements ALL: NKDA SocHx: Reports smoking 3 ppd x 40 years. Quit smoking 20 years ago. Denies illicit drug use. Review of Systems - Review of Systems Review of Systems: 10 pt ROS reviewed, negative Past Patient History - Infectious Disease Hx of Infectious Diseases: None - Past Social History Smoking Status: Former Smoker - CARDIAC Hx Pacemaker: No - PULMONARY Hx Respiratory Disorders: Yes Hx Asthma: Yes Hx Chronic Obstructive Pulmonary Disease (COPD): Yes Hx Pneumonia: No - NEUROLOGICAL Hx Paralysis: No - HEENT Hx Glaucoma: Yes - RENAL Other/Comment: Kidney problems - sees dr strong - ENDOCRINE/METABOLIC Hx Diabetes Mellitus Type 2: Yes - HEMATOLOGICAL/ONCOLOGICAL Hx Blood Transfusions: Yes Hx Blood Transfusion Reaction: No - MUSCULOSKELETAL/RHEUMATOLOGICAL Hx Musculoskeletal Disorders: No - GASTROINTESTINAL Hx Gastrointestinal Disorders: No Hx Colostomy: No Hx Diverticulitis: No Hx Gall Bladder Disease: No Hx Gastroesophageal Reflux: Yes - PSYCHIATRIC Hx Emotional Abuse: No Hx Physical Abuse: No Hx Substance Use: No - SURGICAL HISTORY Hx Cardiac Catheterization: Yes (x 3 stents) Other/Comment: R foot surgery. micky hip replacement - ANESTHESIA Hx Anesthesia Reactions: No Hx Malignant Hyperthermia: No Meds Allergies/Adverse Reactions: Allergies Allergy/AdvReac Type Severity Reaction Status Date / Time No Known Allergies Allergy Verified 06/28/18 08:24 - Medications Medications: Current Medications Albuterol/Ipratropium (Duoneb 3 Mg/0.5 Mg (3 Ml) Ud) 3 ml IH Q6H PRN PRN Reason: Shortness of Breath Amlodipine Besylate (Norvasc) 5 mg PO DAILY [facility] Atorvastatin Calcium (Lipitor) 20 mg PO HS [facility] Furosemide (Lasix) 20 mg IVP Q3H PRN PRN Reason: give one dose prior to each MD Stop: 06/28/18 23:00 Insulin Human Lispro (Humalog Low) 0 units SC [facility]; Protocol Last Admin: 06/28/18 16:52 Dose: Not Given Latanoprost (Xalatan Opht) 0 ml OU DAILY [facility] [id number] Ethyl Esters (Lovaza) 1 gm PO DAILY [facility] Ondansetron HCl (Zofran Inj) 4 mg IVP Q6H PRN PRN Reason: Nausea/Vomiting Ondansetron HCl (Zofran Inj) 4 mg IVP Q6H PRN PRN Reason: Nausea/Vomiting Sertraline HCl (Zoloft) 50 mg PO DAILY [facility] Sevelamer HCl (Renagel) 800 mg PO BID [facility] Last Admin: 06/28/18 17:47 Dose: 800 mg Sodium Bicarbonate (Sodium Bicarbonate Tab) 650 mg PO BID [facility] Last Admin: 06/28/18 17:47 Dose: 650 mg Physical Exam - Constitutional Appears: No Acute Distress - Head Exam Head Exam: NORMOCEPHALIC - Eye Exam Eye Exam: EOMI, Normal appearance - ENT Exam ENT Exam: Mucous Membranes Moist - Respiratory Exam Respiratory Exam: NORMAL BREATHING PATTERN - Cardiovascular Exam Cardiovascular Exam: +S1, +S2 - GI/Abdominal Exam GI & Abdominal Exam: Soft. absent: Distended, Firm, Guarding, Hernia, Rebound, Rigid, Tenderness - Extremities Exam Additional comments: Palpable and equal pulses b/l in both upper and lower extremities - Neurological Exam Neurological exam: Alert, Oriented x3 - Psychiatric Exam Psychiatric exam: Normal Mood - Skin Skin Exam: Intact, Warm Results - Vital Signs Recent Vital Signs: Last Vital Signs Temp 98.6 F 06/28/18 18:00 Pulse 93 H 06/28/18 18:00 Resp 20 06/28/18 18:00 BP 163/98 H 06/28/18 18:00 Pulse Ox 98 06/28/18 17:02 - Labs Result Diagrams: 06/28/18 09:06 06/28/18 09:06 Labs: Laboratory Results - last 24 hr 06/28/18 06/28/18 06/28/18 09:06 09:06 09:06 WBC 7.5 RBC 1.99 L Hgb 5.3 L* D Hct 17.5 L* MCV 87.9 D MCH 26.6 MCHC 30.3 L RDW 18.7 H Plt Count 275 MPV 10.9 Gran % 72.4 H Lymph % (Auto) 17.5 L Wirt % (Auto) 6.5 H Eos % (Auto) 3.3 Baso % (Auto) 0.3 Gran # 5.43 Lymph # (Auto) 1.3 Wirt # (Auto) 0.5 Eos # (Auto) 0.3 Baso # (Auto) 0.02 PT 11.2 INR 0.97 APTT 26.8 Sodium 140 Potassium 4.5 Chloride 110 H Carbon Dioxide 21 Anion Gap 14 BUN 57 H Creatinine 3.0 H Est GFR ( Amer) 18 Est GFR (Non-Af Amer) 15 Random Glucose 109 Calcium 9.0 Magnesium 2.6 H Iron TIBC % Saturation Total Bilirubin 0.3 AST 28 ALT 34 Alkaline Phosphatase 72 Troponin I 0.04 NT-Pro-B Natriuret Pep 7800 H Total Protein 6.0 Albumin 3.3 Globulin 2.7 Albumin/Globulin Ratio 1.2 Blood Type Antibody Screen Crossmatch BBK History Checked 06/28/18 06/28/18 06/28/18 09:06 11:00 17:30 WBC RBC Hgb Hct MCV MCH MCHC RDW Plt Count MPV Gran % Lymph % (Auto) Wirt % (Auto) Eos % (Auto) Baso % (Auto) Gran # Lymph # (Auto) Wirt # (Auto) Eos # (Auto) Baso # (Auto) PT INR APTT Sodium Potassium Chloride Carbon Dioxide Anion Gap BUN Creatinine Est GFR ( Amer) Est GFR (Non-Af Amer) Random Glucose Calcium Magnesium Iron 107 TIBC 352 % Saturation 30 Total Bilirubin AST ALT Alkaline Phosphatase Troponin I 0.05 D NT-Pro-B Natriuret Pep Total Protein Albumin Globulin Albumin/Globulin Ratio Blood Type AB POSITIVE Antibody Screen Negative Crossmatch See Detail BBK History Checked Patient has bt Assessment & Plan - Assessment and Plan (Free Text) Assessment: 83F with fusiform AAA extending up to renal arteries CT scan- ?dissection, lack of IV contrast inhibits proper evaluation of AAA. Equal and palpable b/l pulses in both upper and lower extremities Plan: -Recommend blood transfusion -Recommend f/u EGD -AAA dimension 6.6X7.8cm, warrants surgical intervention -Due to morphology of AAA will recommend patient follow up at tertiary care center for AAA repair -No acute surgical intervention at this present time D/w Dr. Ryan Norwood PGY3
--- NOTE | 2018-06-28 19:17 | CARD ---
APPROVED REPORT Date of service: 06/28/2018 EKG Measurement Heart [id number] <Conclusion> Normal sinus rhythm with sinus arrhythmia Minimal voltage criteria for LVH, may be normal variant Cannot rule out Anterior infarct, age undetermined Abnormal ECG
[2018-06-28 21:49] LABS: FERRITIN 53.1 ng/mL
[2018-06-28 22:20] LABS: FOLATE 15.3 ng/mL
[2018-06-28] MEDS ORDERED: Influenza Vaccine 60 mcg/0.5 mL SYR (4YR UP) IM ONE (22:38)
[2018-06-28] MEDS ORDERED: Pneumococcal 23-Valent Vaccine IM ONE (22:38)
[2018-06-29 00:04] VITALS: O2SAT 95
[2018-06-29 01:42] LABS: BASO # 0.02 K/mm3 (0.0-2.0); BASO % 0.2 % (0.0-3.0); EOS # 0.3 (0.0-0.7); EOS % 2.9 % (1.5-5.0); GRAN # 6.45 (1.4-6.5); LYMPH # 1.2 (1.2-3.4); LYMPH % 14.5 % (22.0-35.0); MEAN CELL VOLUME 87.2 fl (80.0-105.0); MEAN CORPUSCULAR HEMOGLOBIN 27.8 pg (25.0-35.0); MEAN CORPUSCULAR HGB CONC 31.9 g/dl (31.0-37.0); MEAN PLATELET VOLUME 10.5 fl (7.0-11.0); MONO # 0.5 (0.1-0.6); MONO % 6.4 % (1.0-6.0); RBC 2.66 10^6/uL (3.5-6.1); RED CELL DISTRIBUTION WIDTH 18.5 % (11.5-14.5); WHITE BLOOD COUNT 8.5 10^3/uL (4.5-11.0)
[2018-06-29 01:44] LABS: HEMOGLOBIN 7.4 g/dL (12.0-16.0)
--- NOTE | 2018-06-29 05:16 | CP.PCM.PN ---
Objective - Vital Signs/Intake and Output Vital Signs (last 24 hours): Temp Pulse Resp BP Pulse Ox 98.3 F 75 20 144/72 95 06/29/18 00:01 06/29/18 02:00 06/29/18 00:01 06/29/18 00:01 06/29/18 00:01 Intake and Output: 06/28/18 06/29/18 18:59 06:59 Intake Total 650 Balance 650 - Medications Medications: Current Medications Albuterol/Ipratropium (Duoneb 3 Mg/0.5 Mg (3 Ml) Ud) 3 ml IH Q6H PRN PRN Reason: Shortness of Breath Amlodipine Besylate (Norvasc) 5 mg PO DAILY [facility] Atorvastatin Calcium (Lipitor) 20 mg PO HS REPLACED BY [facility] Last Admin: 06/28/18 22:24 Dose: 20 mg Insulin Human Lispro (Humalog Low) 0 units SC [facility]; Protocol Last Admin: 06/28/18 22:24 Dose: Not Given Latanoprost (Xalatan Opht) 0 ml OU DAILY REPLACED BY [facility] [id number] Ethyl Esters (Lovaza) 1 gm PO DAILY REPLACED BY [facility] Ondansetron HCl (Zofran Inj) 4 mg IVP Q6H PRN PRN Reason: Nausea/Vomiting Ondansetron HCl (Zofran Inj) 4 mg IVP Q6H PRN PRN Reason: Nausea/Vomiting Sertraline HCl (Zoloft) 50 mg PO DAILY REPLACED BY [facility] Sevelamer HCl (Renagel) 800 mg PO BID REPLACED BY [facility] Last Admin: 06/28/18 17:47 Dose: 800 mg Sodium Bicarbonate (Sodium Bicarbonate Tab) 650 mg PO BID REPLACED BY [facility] Last Admin: 06/28/18 17:47 Dose: 650 mg - Labs Labs: 06/29/18 01:20 06/28/18 09:06 PT 11.2 SECONDS (9.4-12.5) 06/28/18 09:06 INR 0.97 06/28/18 09:06 APTT 26.8 Seconds (25.1-36.5) 06/28/18 09:06
[2018-06-29 06:36] LABS: BASO # 0.04 K/mm3 (0.0-2.0); BASO % 0.5 % (0.0-3.0); EOS # 0.3 (0.0-0.7); EOS % 3.6 % (1.5-5.0); GRAN # 5.14 (1.4-6.5); HEMOGLOBIN 7.3 g/dL (12.0-16.0); LYMPH # 1.3 (1.2-3.4); LYMPH % 17.7 % (22.0-35.0); MEAN CELL VOLUME 87.7 fl (80.0-105.0); MEAN CORPUSCULAR HEMOGLOBIN 27.1 pg (25.0-35.0); MEAN CORPUSCULAR HGB CONC 30.9 g/dl (31.0-37.0); MEAN PLATELET VOLUME 10.6 fl (7.0-11.0); MONO # 0.7 (0.1-0.6); MONO % 9.2 % (1.0-6.0); RBC 2.69 10^6/uL (3.5-6.1); RED CELL DISTRIBUTION WIDTH 18.8 % (11.5-14.5); WHITE BLOOD COUNT 7.5 10^3/uL (4.5-11.0)
[2018-06-29 06:50] LABS: ALB/GLOB RATIO 1.2 (1.1-1.8); ALBUMIN 3.2 g/dL (3.0-4.8)
[2018-06-29] MEDS: Insulin Lispro (humaLOG) LOW Coverage SC SCH ×3 (07:58→17:09)
[2018-06-29] MEDS ORDERED: Latanoprost 2.5 ml Opht Soln OU SCH ×3 (10:00→22:00)
[2018-06-29] MEDS ORDERED: Omega-3-Acid Ethyl Esters 1 GM Cap PO SCH (10:00)
[2018-06-29] MEDS ORDERED: Propranolol 60 mg ER Cap PO SCH (10:00)
[2018-06-29 11:59] VITALS: RESP 18
--- NOTE | 2018-06-29 12:12 | CON ---
DATE: 06/29/2018 REQUESTING PHYSICIAN: Dr. Banks. REASON FOR CONSULTATION: I have been asked to see this 83-year-old female with chronic kidney disease with baseline creatinine 1 in the 3 range with chronic anemia on aspirin and Plavix for coronary artery disease with coronary artery stent placement on IV iron and Procrit who comes to the hospital for severe anemia in Dr. Myers's office with a hemoglobin of 5.5. The patient complains of heaviness in her chest all the way down to her pelvis. She denies any palpitations, but does admit to dyspnea on exertion. The patient had a similar presentation with anemia 1 year ago in 06/2017. She underwent a colonoscopy in 07/2017 which did not reveal any source of bleeding. She was found to have diverticulosis and hemorrhoids. She was scheduled for an elective endoscopy shortly thereafter words, but canceled her appointment. CT scan of the abdomen and pelvis performed in the emergency room shows a large abdominal aortic aneurysm measuring 6.6 x 7.8 cm and is 13.5 cm long with dissection. She currently denies any abdominal pain, nausea, vomiting, or rectal bleeding. She feels better after having received 2 units of packed red blood cells. Her hemoglobin increased from 5.3 to 7.3. Again she denies any melena, rectal bleeding, nausea or vomiting. PAST MEDICAL HISTORY: Notable for coronary artery disease, on aspirin and Plavix; stage IV chronic kidney disease; chronic anemia; type 2 diabetes mellitus; asthma; COPD and hypertension. PAST SURGICAL HISTORY: Notable for excision of a right neuroma. SOCIAL HISTORY: The patient is a former cigarette smoker having smoked up to three packs per day for 30 years. She quit 20 years ago. She consumes alcohol socially. She lives alone at home. FAMILY HISTORY: Notable for mother with colon cancer. Sister with pancreatic cancer. REVIEW OF SYSTEMS: A 14-point review of systems is notable for generalized weakness, chest pressure, and dyspnea on exertion. MEDICATIONS AT HOME: Include albuterol, Humalog, Inderal, Lipitor, Lovaza, Norvasc, Renagel, sodium bicarbonate Xalatan, Zofran, and Zoloft. PHYSICAL EXAMINATION: GENERAL: Well-developed female lying in bed, appearing pale. VITAL SIGNS: Reveal temperature of 97.8, blood pressure 146/80, heart rate of 78. HEENT: Reveal sclerae to be white. Conjunctivae pale. NECK: Supple. CHEST: Reveal lungs to be clear. HEART: Reveals regular rate and rhythm. ABDOMEN: Soft, nontender. There is no palpable mass. EXTREMITIES: Show no edema. LABORATORY DATA: Reveal BUN 50, creatinine 2.8. Ferritin is 53.1. Iron saturation is 30%. IMPRESSION: 1. Chronic anemia. Iron studies are normal, we must rule out primary hematologic disorder such as myelofibrosis. Clinically, the patient do not have an active gastrointestinal bleed. 2. Large 13 cm long, 6.5 cm wide abdominal aortic aneurysm with dissection. RECOMMENDATIONS: 1. Transfuse packed red blood cells to a hematocrit of 27% to 30%. 2. We will schedule the patient for an outpatient elective endoscopy. I have offered the patient an endoscopy for this morning which she has refused. 3. Vascular surgical evaluation for repair of dissecting abdominal aortic aneurysm. Chase Cardona MD
--- NOTE | 2018-06-29 12:29 | CON ---
DATE: 06/29/2018 CHIEF COMPLAINT/HISTORY OF PRESENT ILLNESS: This is an 83-year-old female who was admitted with severe anemia and fatigue. A CT scan of the abdomen and pelvis on admission revealed a 7.5 cm juxtarenal abdominal aortic aneurysm. I have asked to evaluate her for aneurysm repair. The patient has had an issue with severe anemia for over a year. She has been receiving iron supplementation on an outpatient basis. Her GI workup has only included a colonoscopy at this point in time. The patient states she has had multiple negative fecal occult blood samples. The patient has no abdominal or back pain. The aneurysm demonstrates no evidence of hemorrhage. Unfortunately, this large aneurysm is not anatomically amendable to stent graft repair. The proximal neck is short calcified and severely angulated. The patient has numerous medical comorbidities which increase the risk of open or stent graft repair. Her baseline creatinine is in the 2's. PAST MEDICAL HISTORY: Includes coronary artery disease status post stents, diabetes, hypertension, dyslipidemia, and COPD. SOCIAL HISTORY: The patient quit smoking 20 years ago. The belly is soft. The aneurysm is palpable and nontender. She has palpable femoral pulses. Her right popliteal and pedal pulses are normal. Her left popliteal and pedal pulses are absent, consistent with left SFA occlusive disease. RECOMMENDATIONS: I discussed the situation with Dr. Davis. I do not think she is a good candidate for either stent graft or surgical repair. I discussed the situation at length with the patient. There is an increased risk of rupture given the size of the aneurysm, but the patient is amendable to continued surveillance and no intervention at this time. Her most pressing current issue is the anemia. She should complete the upper endoscopy. I am uncertain whether this is a production or blood loss issue. She may have some small bowel source that will not be easily diagnosed or treated. Sam Gupta MD MTDGary
[2018-06-29 15:12] VITALS: BP 129/64; PULSE 60; TEMP 98.3
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
== END 2018-06-29 17:28 | disposition home or self-care (01) ==
LOC: ED 08:13 → INTOOBSV 10:17 → ERH 10:17 → 2RSO 17:29
PROVIDERS: ADMIT Internal Medicine Nephrology; ATTEND Internal Medicine Nephrology
DX: D63.1 Anemia in chronic kidney disease (principal); E11.22 Type 2 diabetes mellitus with diabetic chronic kidney disease; E61.1 Iron deficiency; E78.5 Hyperlipidemia, unspecified; H40.9 Unspecified glaucoma; N18.4 Chronic kidney disease, stage 4 (severe); I12.9 Hypertensive chronic kidney disease with stage 1 through stage 4 chronic kidney disease, or unspecified chronic kidney disease; I25.10 Atherosclerotic heart disease of native coronary artery without angina pectoris; I71.4 Abdominal aortic aneurysm, without rupture; J44.9 Chronic obstructive pulmonary disease, unspecified; K21.9 Gastro-esophageal reflux disease without esophagitis; K57.30 Diverticulosis of large intestine without perforation or abscess without bleeding; K64.9 Unspecified hemorrhoids; N25.81 Secondary hyperparathyroidism of renal origin; Z79.02 Long term (current) use of antithrombotics/antiplatelets; Z79.84 Long term (current) use of oral hypoglycemic drugs; Z80.0 Family history of malignant neoplasm of digestive organs; Z82.3 Family history of stroke; Z87.891 Personal history of nicotine dependence; Z91.81 History of falling; Z95.5 Presence of coronary angioplasty implant and graft; Z96.643 Presence of artificial hip joint, bilateral
CPT/HCPCS: 36415; 36430; 70450; 71046; 74176; 80053; 80061; 82607; 82728; 82746; 82948; 83036; 83735; 83880; 84100; 84466; 84484; 85025; 85044; 85610; 85730; 86850; 86900; 86920; 93005; 99285; G0378; J1940; P9016; Q9966

== ENCOUNTER 2018-07-12 11:33 | Day surgery (SDC) | payer MEDICARE, BC ==
[2018-07-10 18:06] VITALS: BMI 33.6
[2018-07-12] MEDS ORDERED: Propofol 10 mg/ml Inj (20 ML) ONE (12:09)
[2018-07-12 12:39] VITALS: RESP 18
[2018-07-12] MEDS ORDERED: Sodium Chloride 0.9% 1,000 ML IV SCH (13:00)
[2018-07-12 13:27] VITALS: BP 145/68; PULSE 60; TEMP 97.9; O2SAT 98
== END 2018-07-12 14:04 | disposition home or self-care (01) ==
LOC: ENDO 11:33
PROVIDERS: ATTEND Specialist
DX: D50.9 Iron deficiency anemia, unspecified (principal); K20.9 Esophagitis, unspecified; K44.9 Diaphragmatic hernia without obstruction or gangrene; K29.51 Unspecified chronic gastritis with bleeding; I25.10 Atherosclerotic heart disease of native coronary artery without angina pectoris; I12.9 Hypertensive chronic kidney disease with stage 1 through stage 4 chronic kidney disease, or unspecified chronic kidney disease; E11.22 Type 2 diabetes mellitus with diabetic chronic kidney disease; N18.9 Chronic kidney disease, unspecified; J44.9 Chronic obstructive pulmonary disease, unspecified; I71.02 Dissection of abdominal aorta; Z96.643 Presence of artificial hip joint, bilateral
CPT/HCPCS: 43239; 82948; 88305; 88342; J2001; J2704; J7030

== ENCOUNTER 2018-12-15 15:14 | Emergency (ER) | payer BC, MEDICARE ==
[2018-12-15 15:30] VITALS: BMI 30.9
--- NOTE | 2018-12-15 15:46 | ED PDOC ---
Arrival/HPI - General Chief Complaint: Medical Clearance Time Seen by Provider: 12/15/18 15:22 Historian: Patient - History of Present Illness Narrative History of Present Illness (Text): 12/15/18 15:43 An 83 year old female, whose past medical history includes asthma, COPD, diabetes type 2, blood transfusions, cardiac stents x 3, and anemia, was sent in to the ED by Dr. Myers for a blood transfusion. Patient reports her hemoglobin is low and remains so after having 2 iron infusions. Patient denies any fevers, chills, headache, dizziness, chest pain, shortness of breath, dyspnea on exertion, cough, abdominal pain, nausea, vomiting, diarrhea, back pain, neck pain, urinary/bowel changes, or any other complaints. PMD: Dr. Rosales Specialist: Dr. Myers(hematology) Symptom Onset: Gradual Symptom Course: Unchanged Activities at Onset: Light Context: Home Past Medical History - Provider Review Nursing Documentation Reviewed: Yes Primary Care Provider: Azar Rosales - Infectious Disease Hx of Infectious Diseases: None - Cardiac Hx Pacemaker: No - Pulmonary Hx Respiratory Disorders: Yes Hx Asthma: Yes Hx Chronic Obstructive Pulmonary Disease (COPD): Yes Hx Pneumonia: No - Neurological Hx Paralysis: No - HEENT Hx HEENT Disorder: Yes Hx Glaucoma: Yes - Renal Hx Renal Disorder: Yes Other/Comment: Kidney problems - sees dr strong - Endocrine/Metabolic Hx Endocrine Disorders: Yes Hx Diabetes Mellitus Type 2: Yes Other/Comment: hyperparathyroidism - Hematological/Oncological Hx Blood Transfusions: Yes Hx Blood Transfusion Reaction: No - Integumentary Hx Dermatological Disorder: Yes - Musculoskeletal/Rheumatological Hx Musculoskeletal Disorders: No - Gastrointestinal Hx Gastrointestinal Disorders: Yes (diverticulosis egd 07/2017) Hx Colostomy: No Hx Diverticulitis: No Hx Gall Bladder Disease: No Hx Gastroesophageal Reflux: Yes - Genitourinary/Gynecological Hx Genitourinary Disorders: No - Psychiatric Hx Substance Use: No - Surgical History Hx Musculoskeletal Surgery: Yes (B/L hip replacement ) Other/Comment: neuroma removed from foot - Anesthesia Hx Anesthesia: Yes Hx Anesthesia Reactions: No Hx Malignant Hyperthermia: No - Suicidal Assessment Feels Threatened In Home Enviroment: No Family/Social History - Physician Review Nursing Documentation Reviewed: Yes Family/Social History: No Known Family HX Smoking Status: Former Smoker Hx Alcohol Use: No Hx Substance Use: No Allergies/Home Meds Allergies/Adverse Reactions: Allergies No Known Allergies Allergy (Verified 12/15/18 15:30) Home Medications: Home Meds Medication Instructions Recorded Confirmed Atorvastatin [Lipitor] 20 tab PO HS 07/15/17 07/10/18 Ezetimibe [Zetia] 10 mg PO DAILY 07/15/17 07/12/18 Glimepiride [Amaryl] 1 mg PO DAILY 07/15/17 07/12/18 Lansoprazole [Prevacid] 30 mg PO DAILY 07/15/17 07/12/18 Latanoprost 0.005% Opht [Xalatan 1 drop BOTHEYES DAILY 07/15/17 07/12/18 Opht] [id number] Ethyl Esters 1 GM 1 cap PO DAILY 07/15/17 07/12/18 [Lovaza] Sodium Bicarbonate Tab 650 mg PO BID 07/15/17 07/12/18 amLODIPine [Norvasc] 10 mg PO DAILY 07/15/17 07/12/18 Escitalopram [Lexapro] 10 mg PO DAILY 07/10/18 07/10/18 Fluticasone/Umeclidin/Vilanter 1 each IH DAILY 07/10/18 07/12/18 [Trelegy Ellipta 100-62.5-25] Sucroferric Oxyhydroxide [Velphoro] 500 mg PO DAILY 07/10/18 07/12/18 Ferrous Sulfate [Feosol] 325 mg PO TID 07/12/18 07/12/18 Review of Systems - Physician Review All systems were reviewed & negative as marked: Yes - Review of Systems Respiratory: absent: SOB Neurological: absent: Dizziness Physical Exam Vital Signs Reviewed: Yes Vital Signs Temp Pulse Resp BP Pulse Ox 12/15/18 15:30 98.5 F 73 18 131/69 97 Temperature: Afebrile Blood Pressure: Normal Pulse: Regular Respiratory Rate: Normal Appearance: Positive for: Well-Appearing, Non-Toxic, Comfortable Pain Distress: None Mental Status: Positive for: Alert and Oriented X 3 - Systems Exam Head: Present: Atraumatic, Normocephalic Pupils: Present: PERRL Extroacular Muscles: Present: EOMI Conjunctiva: Present: Normal Respiratory/Chest: Present: Clear to Auscultation, Good Air Exchange. No: Respiratory Distress, Accessory Muscle Use Cardiovascular: Present: Regular Rate and Rhythm, Normal S1, S2. No: Murmurs Neurological: Present: GCS=15, CN II-XII Intact, Speech Normal Skin: Present: Pale. No: Other (No ecchymosis noted anywhere on body.) Psychiatric: Present: Alert, Oriented x 3, Normal Insight, Normal Concentration Medical Decision Making ED Course and Treatment: 12/15/18 15:48 Impression: An 83 year old female who presents to the ED for blood transfusion. Plans: -- Labs --pRBC transfusion -- Reassess and disposition Prior Visits: Notes and results from previous visits were reviewed. Patient was last seen in the emergency department on 06/28/18. Progress Notes: 12/15/18 17:08 Patient's Hb is 7.0, decreased from 7.4. Will consent patient for blood. Call placed for Dr. Myers (dray driver). 12/15/18 17:[address] Myers, who agrees with plan for 1 unit and discharge. Consent form signed by patient. 12/15/18 19:[address] Alvarado who will resume the patient's care. - Lab Interpretations Lab Results: 12/15/18 16:40 12/15/18 16:40 Lab Results 12/15/18 16:54: Blood Type AB POSITIVE, Antibody Screen Negative, Crossmatch See Detail, BBK History Checked Patient has bt 12/15/18 16:40: Sodium 141, Potassium 4.7, Chloride 108 H, Carbon Dioxide 24, Anion Gap 13, BUN 64 H, Creatinine 2.8 H, Est GFR ( Amer) 20, Est GFR (Non-Af Amer) 16, Random Glucose 116 H, Calcium 8.8, Total Bilirubin 0.2, AST 29, ALT 16, Alkaline Phosphatase 58, Total Protein 6.0, Albumin 3.4, Globulin 2.6, Albumin/Globulin Ratio 1.3 12/15/18 16:40: WBC 8.1, RBC 2.36 L, Hgb 7.0 L, Hct 22.4 L, MCV 94.9 D, MCH 29.7, MCHC 31.3, RDW 17.4 H, Plt Count 232, MPV 11.6 H, Neut % (Auto) 70.6 H, Lymph % (Auto) 20.4 L, Tyler % (Auto) 5.0, Eos % (Auto) 3.6, Baso % (Auto) 0.4, Lymph # (Auto) 1.6, Tyler # (Auto) 0.4, Eos # (Auto) 0.3, Baso # (Auto) 0.03, Absolute Neuts (auto) 5.69 I have reviewed the lab results: Yes - Scribe Statement The provider has reviewed the documentation as recorded by the Scribe Satishwill Muir Provider Scribe Attestation: All medical record entries made by the Scribe were at my direction and personally dictated by me. I have reviewed the chart and agree that the record accurately reflects my personal performance of the history, physical exam, medical decision making, and the department course for this patient. I have also personally directed, reviewed, and agree with the discharge instructions and disposition. Disposition/Present on Arrival - Present on Arrival Any Indicators Present on Arrival: No History of DVT/PE: No History of Uncontrolled Diabetes: No Urinary Catheter: No History of Decub. Ulcer: No History Surgical Site Infection Following: None - Disposition Have Diagnosis and Disposition been Completed?: Yes Diagnosis: Anemia Disposition: HOME/ ROUTINE Disposition Time: 20:00 Patient Plan: Discharge Condition: GUARDED Discharge Instructions (ExitCare): Anemia Caused by Low Iron, Adult (DC) Print Language: TAMAZIGHT Additional Instructions: All medical record entries made by the Scribe were at my direction and personally dictated by me. I have reviewed the chart and agree that the record accurately reflects my personal performance of the history, physical exam, medical decision making, and the department course for this patient. I have also personally directed, reviewed, and agree with the discharge instructions and disposition. Please follow up with Dr. Myers in 5 days Referrals: Nishi Myers MD [Staff Provider] - Follow up with primary Azar Rosales MD [Staff Provider] - Follow up with primary Forms: [employer] ([place])
[2018-12-15 16:54] LABS: BASO # 0.03 K/mm3 (0.0-2.0); BASO % 0.4 % (0.0-3.0); EOS # 0.3 (0.0-0.7); EOS % 3.6 % (1.5-5.0); LYMPH # 1.6 (1.2-3.4); LYMPH % 20.4 % (22.0-35.0); MEAN CELL VOLUME 94.9 fl (80.0-105.0); MEAN CORPUSCULAR HEMOGLOBIN 29.7 pg (25.0-35.0); MEAN CORPUSCULAR HGB CONC 31.3 g/dl (31.0-37.0); MEAN PLATELET VOLUME 11.6 fl (7.0-11.0); MONO # 0.4 (0.1-0.6); RBC 2.36 10^6/uL (3.5-6.1); RED CELL DISTRIBUTION WIDTH 17.4 % (11.5-14.5); WHITE BLOOD COUNT 8.1 10^3/uL (4.5-11.0)
[2018-12-15 17:05] LABS: ALB/GLOB RATIO 1.3 (1.1-1.8); ALBUMIN 3.4 g/dL (3.0-4.8); CALCIUM 8.8 mg/dL (8.4-10.5)
[2018-12-15 19:55] VITALS: O2SAT 97
[2018-12-15 21:43] VITALS: BP 154/73; PULSE 60; RESP 13; TEMP 98
--- NOTE | 2018-12-16 11:53 | CARD ---
APPROVED REPORT Date of service: 12/15/2018 EKG Measurement Heart [id number] <Conclusion> Marked sinus bradycardia with premature atrial complexes with aberrant conduction Left axis deviation Incomplete left bundle branch block Voltage criteria for left ventricular hypertrophy Abnormal ECG
== END 2018-12-15 21:44 | disposition home or self-care (01) ==
LOC: ED 15:14
DX: D64.9 Anemia, unspecified (principal); J44.9 Chronic obstructive pulmonary disease, unspecified; E11.9 Type 2 diabetes mellitus without complications; Z95.5 Presence of coronary angioplasty implant and graft; Z79.899 Other long term (current) drug therapy
CPT/HCPCS: 36430; 80053; 85025; 86850; 86900; 86920; 93005; 99283; P9016